=== PATIENT | female | born 1980 | race Hispanic/Latino ===

== ENCOUNTER 2018-05-06 11:32 | Emergency (ER) | payer BC ==
--- NOTE | 2018-05-06 12:06 | ER ---
Nurse's Notes [facility] Name: April Wei Age: 38 yrs Sex: Female : 1980 Arrival Date: 05/06/2018 Time: 11:36 Bed 23 Private MD: None, None Diagnosis: Bronchitis, not specified as acute or chronic Presentation: 05/06 11:40 Presenting complaint: Patient states: fever, cough congestion and headache that began ss yesterday evening. Transition of care: patient was not received from another setting of care. Onset of symptoms was May 05, 2018. Risk Assessment: Do you want to hurt yourself or someone else? Patient reports no desire to harm self or others. Initial Sepsis Screen: Does the patient meet any 2 criteria? No. Patient's initial sepsis screen is negative. Does the patient have a suspected source of infection? No. Patient's initial sepsis screen is negative. Care prior to arrival: None. 11:40 Method Of Arrival: Ambulatory ss 11:40 Acuity: BARB 4 ss Triage Assessment: 11:50 General: Appears in no apparent distress. iw 11:50 General: Behavior is calm, cooperative. 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 - Social history:: Smoking status: Patient/guardian denies using tobacco, Patient/guardian denies using alcohol, street drugs, The patient lives with family. - Ebola Screening: : Patient denies exposure to infectious person Patient denies travel to an Ebola-affected area in the 21 days before illness onset. - Family history:: not pertinent. Screenin:20 Abuse screen: Denies threats or abuse. Denies injuries from another. Nutritional iw screening: No deficits noted. Tuberculosis screening: No symptoms or risk factors identified. Fall Risk None identified. Assessment: 11:55 General: Appears in no apparent distress. comfortable, Behavior is calm, cooperative. iw General: Reports feeling ill for. General: Reports fever for 1-2 days. Pain: Denies pain. Neuro: Level of Consciousness is awake, alert, obeys commands, Moves all extremities. Cardiovascular: Patient's skin is warm and dry. Respiratory: Reports cough that is. GI: No signs and/or symptoms were reported involving the gastrointestinal system. Derm: Skin is intact, is healthy with good turgor. Musculoskeletal: Range of motion: intact in all extremities. Vital Signs: 11:41 BP 135 / 89; Pulse 71; Resp 15; Temp 98.4(TE); Pulse Ox 100% on R/A; Weight 82.55 kg; ss Height 5 ft. 3 in. (160.02 cm); Pain 6/10; 11:41 Body Mass Index 32.24 (82.55 kg, 160.02 cm) ED Course: 11:36 Patient arrived in ED. dl4 11:37 None, None is Private Physician. dl4 11:41 Triage completed. ss 11:41 Arm band placed on right wrist. ss 11:42 Gypsy Lowe, RN is Primary Nurse. iw 11:45 Jae Mckeon MD is Attending Physician. ma2 11:45 Patient has correct armband on for positive identification. iw 12:20 No provider procedures requiring assistance completed. Patient did not have IV access iw during this emergency room visit. Administered Medications: No medications were administered Outcome: 12:05 Discharge ordered by . ma2 12:20 Discharged to home ambulatory. iw 12:20 Condition: good 12:20 Discharge instructions given to patient, Instructed on discharge instructions, follow up and referral plans. medication usage, Demonstrated understanding of instructions, follow-up care, medications, Prescriptions given X 2. 12:21 Patient left the ED. iw Signatures: Gypsy Lowe RN RN Suzanna Garcia RN RN Jae Mckeon MD MD ma2 Luna, David dl4
--- NOTE | 2018-05-06 12:06 | EDPHYS ---
Physician Documentation [facility] Name: April Wei Age: 38 yrs Sex: Female : 1980 Arrival Date: 05/06/2018 Time: 11:36 Bed 23 Private MD: None, None ED Physician Jae Mckeon HPI: 05/06 12:03 This 38 yrs old Female presents to ER via Ambulatory with complaints of Fever, ma2 Cough. 12:03 The patient reports fever, not measured (subjective). Onset: The symptoms/episode ma2 began/occurred gradually, 2 day(s) ago. Associated signs and symptoms: Pertinent positives: cough, Pertinent negatives: arthralgias, chest pain, hemoptysis, nausea, sinus congestion. Severity of symptoms: At their worst the symptoms were moderate in the emergency department the symptoms are unchanged. The patient has experienced similar episodes in the past. 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 - Social history:: Smoking status: Patient/guardian denies using tobacco, Patient/guardian denies using alcohol, street drugs, The patient lives with family. - Ebola Screening: : Patient denies exposure to infectious person Patient denies travel to an Ebola-affected area in the 21 days before illness onset. - Family history:: not pertinent. ROS: 12:03 Constitutional: Negative for fever, chills, and weight loss, Cardiovascular: Negative ma2 for chest pain, palpitations, and edema, Abdomen/GI: Negative for abdominal pain, nausea, diarrhea, and constipation, MS/Extremity: Negative for injury and deformity, Neuro: Negative for headache, weakness, numbness, tingling, and seizure, Allergy/Immunology: Negative for hives, rash, and allergies. 12:03 Respiratory: Positive for cough, Negative for dyspnea on exertion, orthopnea, pleurisy, shortness of breath, sputum production. 12:03 All other systems are negative. Exam: 12:03 Constitutional: This is a well developed, well nourished patient who is awake, alert, ma2 and in no acute distress. Neck: Trachea midline, no thyromegaly or masses palpated, and no cervical lymphadenopathy. Supple, full range of motion without nuchal rigidity, or vertebral point tenderness. No Meningismus. Chest/axilla: Normal chest wall appearance and motion. Nontender with no deformity. No lesions are appreciated. Cardiovascular: Regular rate and rhythm with a normal S1 and S2. No gallops, murmurs, or rubs. Normal PMI, no JVD. No pulse deficits. Respiratory: Lungs have equal breath sounds bilaterally, clear to auscultation and percussion. No rales, rhonchi or wheezes noted. No increased work of breathing, no retractions or nasal flaring. Abdomen/GI: Soft, non-tender, with normal bowel sounds. No distension or tympany. No guarding or rebound. No evidence of tenderness throughout. MS/ Extremity: Pulses equal, no cyanosis. Neurovascular intact. Full, normal range of motion. Neuro: Awake and alert, GCS 15, oriented to person, place, time, and situation. Cranial nerves II-XII grossly intact. Motor strength 5/5 in all extremities. Sensory grossly intact. Cerebellar exam normal. Normal gait. Vital Signs: 11:41 BP 135 / 89; Pulse 71; Resp 15; Temp 98.4(TE); Pulse Ox 100% on R/A; Weight 82.55 kg; ss Height 5 ft. 3 in. (160.02 cm); Pain 6/10; 11:41 Body Mass Index 32.24 (82.55 kg, 160.02 cm) MDM: 11:45 Patient medically screened. ma2 12:03 Differential diagnosis: viral Infection, URI, bronchitis, gastroenteritis, patient ma2 rquest antibiotic. Data reviewed: vital signs, nurses notes. Counseling: I had a detailed discussion with the patient and/or guardian regarding: the historical points, exam findings, and any diagnostic results supporting the discharge/admit diagnosis, the presence of at least one elevated blood pressure reading (>120/80) during this emergency department visit, the need for outpatient follow up. Administered Medications: No medications were administered Disposition: 05/06/18 12:05 Discharged to Home. Impression: Bronchitis, not specified as acute or chronic. - Condition is Stable. - Discharge Instructions: Upper Respiratory Infection, Adult, Form - Excuse from Work, School, or Physical Activity. - Prescriptions for Augmentin 875- 125 mg Oral Tablet - take 1 tablet by ORAL route every 12 hours for 10 days; 20 tablet. Tylenol- Codeine #3 300-30 mg Oral Tablet - take 2 tablet by ORAL route every 6 hours As needed; 30 tablet. - Work release form, Medication Reconciliation Form, Thank You Letter, Antibiotic Education, Prescription Opioid Use form. - Follow up: Private Physician; When: Tomorrow; Reason: Continuance of care. Signatures: Gypsy Lowe RN RN Suzanna Garcia RN RN Jae Mckeon MD MD ma2 Corrections: (The following items were deleted from the chart) 12:21 12:05 05/06/2018 12:05 Discharged to Home. Impression: Bronchitis, not specified as iw acute or chronic. Condition is Stable. Forms are Medication Reconciliation Form, Thank You Letter, Antibiotic Education, Prescription Opioid Use. Follow up: Private Physician; When: Tomorrow; Reason: Continuance of care. ma2
== END 2018-05-06 12:21 | disposition home or self-care (01) ==
LOC: ER 11:32
DX: J40 Bronchitis, not specified as acute or chronic (principal)
CPT/HCPCS: 99282

== ENCOUNTER 2018-06-10 08:58 | Emergency (ER) | payer BC ==
--- OUTSIDE RECORDS SUMMARY | 2018-06-10 09:00 | XMS REPORT ---
:1980 [facility] Address [address] [place] [address] Care Team Providers Name Role Phone Unavailable Unavailable Unavailable Payers Payer Name Policy Type Policy Number Effective Date Expiration Date Problems This patient has no known problems. Allergies, Adverse Reactions, Alerts This patient has no known allergies or adverse reactions. Medications This patient has no known medications. Results Test Description Test Time Test Comments Text Results Atomic Results Result Comments - CT MAXIFAC W/O 2018-05-22 10:58:00 Name: MASON PANTOJA [facility] : 1980 Age/S: 38 / F [id number] Unit #: [id number] Loc: [place] [address] Phys: Wesley Villatoro III, MD Acct: [id number] Dis Date: Status: REG CL PHONE #: [phone] Exam Date: 05/22/2018 1005 FAX #: Reason: NASAL POLYPS, J33.9 EXAMS: CPT: [id number] CT MAXIFAC W/O CONTRAST 99418 Examination: Sinus CT without contrast Location code: S17 Comparison: None Technique: Thin section axial images were obtained through the sinuses followed by coronal and sagittal reformations. All CT scans are performed using radiation dose reduction technique. Technical factors are evaluated and adjusted to insure appropriate moderation of exposure. Automated dose management technology is applied to adjust the radiation dose to minimize exposure while achieving a diagnostic quality image. [facility] protocol was utilized. Discussion: Clinical history is remarkable for nasal polyps. Polypoid protrusions are present within the nasal cavity effacing the air passages adjacent to the middle turbinates completely, partial effacement of the air passages adjacent to the inferior turbinates, left more than right. This finding contributes to at least 70% opacification of left maxillary sinus, 30-40% opacification of the right maxillary sinus. The ostiomeatal complex bilaterally is effaced. Mild mucosal thickening is present in the floor of the right frontal sinus, the right frontal ethmoidal recess is occluded. The left-sided frontal ethmoidal recess is partially effaced. Mastoid air cells and middle ears are unremarkable. There is chronic mucoperiosteal thickening of the sphenoid sinus bilaterally. Impression: Findings suggest diffuse nasal polyposis, diffuse paranasal sinus disease is present as a result. There is no erosion into the orbits. at 1058 Reported and signed by: Brennen Downs M.D. PAGE 1 Signed Report (CONTINUED) Name: MASON PANTOJA [facility] : 1980 Age/S: 38 / F [id number] Unit #: [id number] Loc: [place] [address] Phys: Wesley Villatoro III, MD Acct: [id number] Dis Date: Status: REG CLI PHONE #: [phone] Exam Date: 05/22/2018 1005 FAX #: Reason: NASAL POLYPS, J33.9 EXAMS: CPT: [id number] CT MAXIFAC W/O CONTRAST 72656 <Continued> CC: Wesley Villatoro III, MD Technologist:Yumiko Mack, RT(R)(CT) CTDI: DLP: Trnscb Date/Time: 05/22/2018 (1054) [id number] Orig Print D/T: S: 05/22/2018 (3430) CTDI: DLP: PAGE 2 Signed Report
--- NOTE | 2018-06-10 10:03 | ER ---
Nurse's Notes [facility] Name: April Wei Age: 38 yrs Sex: Female : 1980 Arrival Date: 06/10/2018 Time: 09:00 Bed 11 Private MD: Diagnosis: Influenza due to identified novel influenza A virus Presentation: 06/10 09:07 Presenting complaint: Patient states: flu like symptoms for 2 days. Transition of care: patient was not received from another setting of care. Onset of symptoms was June 08, 2018. Risk Assessment: Do you want to hurt yourself or someone else? Patient reports no desire to harm self or others. Initial Sepsis Screen: Does the patient meet any 2 criteria? No. Patient's initial sepsis screen is negative. Does the patient have a suspected source of infection? No. Patient's initial sepsis screen is negative. Care prior to arrival: Medication(s) given: mucinex. 09:07 Method Of Arrival: Ambulatory 09:07 Acuity: BARB 4 Triage Assessment: 09:08 General: Appears in no apparent distress. comfortable, Behavior is calm, cooperative, ch appropriate for age. Pain: Complains of pain in face Pain currently is 6 out of 10 on a pain scale. Quality of pain is described as pressure. EENT: Reports nasal congestion nasal discharge. Neuro: No deficits noted. Respiratory: Reports cough that is. 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 - Social history:: Smoking status: Patient/guardian denies using tobacco, Patient/guardian denies using alcohol, street drugs. - Ebola Screening: : Patient negative for fever greater than or equal to 101.5 degrees Fahrenheit, and additional compatible Ebola Virus Disease symptoms Patient denies exposure to infectious person Patient denies travel to an Ebola-affected area in the 21 days before illness onset No symptoms or risks identified at this time. Screenin:39 Abuse screen: Denies threats or abuse. Denies injuries from another. Nutritional ss screening: No deficits noted. Tuberculosis screening: No symptoms or risk factors identified. Never had TB. Fall Risk None identified. Assessment: 09:39 General: Appears in no apparent distress. comfortable, Behavior is calm, cooperative, ss quiet, Reports fever for 1-2 days, feeling ill for 1-2 days. Pain: Complains of pain in general body aches Pain currently is 6 out of 10 on a pain scale. Quality of pain is described as aching, tender. Neuro: Level of Consciousness is awake, alert, obeys commands, Oriented to person, place, time, situation. Cardiovascular: Capillary refill < 3 seconds is brisk in bilateral fingers. Respiratory: Airway is patent Trachea midline Respiratory effort is even, unlabored, Respiratory pattern is regular, symmetrical. GI: Patient currently denies diarrhea, nausea, vomiting. : No signs and/or symptoms were reported regarding the genitourinary system. EENT: Nares are clear Oral mucosa is moist. Throat is clear. Derm: Skin is intact, is healthy with good turgor, Skin is dry, Skin is pink, warm \T\ dry. normal. Musculoskeletal: Circulation, motion, and sensation intact. Capillary refill < 3 seconds, is brisk, in bilateral fingers. Range of motion: intact in all extremities, Swelling absent. 09:39 EENT: Reports nasal congestion. Vital Signs: 09:08 BP 139 / 89; Pulse 95; Resp 16; Temp 99.9(O); Pulse Ox 100% on R/A; Weight 83.46 kg; ch Height 5 ft. 3 in. (160.02 cm); Pain 6/10; 09:08 Body Mass Index 32.59 (83.46 kg, 160.02 cm) ED Course: 09:00 Patient arrived in ED. as 09:01 El[facility]ke[facility]C [facility] kb 09:01 Justo Callaway MD is Attending Physician. kb 09:08 Triage completed. 09:08 Arm band placed on left wrist. Patient placed in an exam room, on a stretcher. 09:13 Yolanda Downs, TODD is Primary Nurse. 09:33 Strep Sent. 09:33 Flu Sent. 09:39 Patient has correct armband on for positive identification. Bed in low position. Call ss light in reach. 10:00 No provider procedures requiring assistance completed. IV discontinued, intact, ch bleeding controlled, No redness/swelling at site. Pressure dressing applied. Administered Medications: No medications were administered Outcome: 10:02 Discharge ordered by . sergei 10:10 Discharged to home ambulatory, with family. 10:10 Condition: improved 10:10 Discharge instructions given to patient, family, Instructed on discharge instructions, follow up and referral plans. medication usage, Demonstrated understanding of instructions, follow-up care, medications. 10:12 Patient left the ED. Signatures: Elodia Mckeon, SANDHYA-C SANDHYA-Yolanda Desir, RN RN Adia Rick Shelby, RN RN ss Corrections: (The following items were deleted from the chart) 09:42 09:39 Pain: Complains of pain in face Pain currently is 6 out of 10 on a pain scale. Quality of pain is described as aching, tender, ss 09:43 09:42 EENT: Reports nasal congestion ss ss
--- NOTE | 2018-06-10 10:03 | EDPHYS ---
Physician Documentation [facility] Name: April Wei Age: 38 yrs Sex: Female : 1980 Arrival Date: 06/10/2018 Time: 09:00 Bed 11 Private MD: ED Physician Justo Callaway HPI: 06/10 09:55 This 38 yrs old Female presents to ER via Ambulatory with complaints of Flu kb Symptoms. 09:55 The patient or guardian reports cough, that is intermittent, described as mild, with no kb sputum, flu symptoms, arthralgias, low-grade fever, myalgias, no appetite. Onset: The symptoms/episode began/occurred 2 day(s) ago. Severity of symptoms: At their worst the symptoms were mild, moderate, in the emergency department the symptoms are unchanged. Modifying factors: The symptoms are alleviated by nothing, the symptoms are aggravated by nothing. Associated signs and symptoms: Pertinent positives: fever, rhinorrhea, sore throat, Pertinent negatives: chest pain, diarrhea, ear ache, nausea, vomiting. The patient has not experienced similar symptoms in the past. The patient has not recently seen a physician. 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 - Social history:: Smoking status: Patient/guardian denies using tobacco, Patient/guardian denies using alcohol, street drugs. - Ebola Screening: : Patient negative for fever greater than or equal to 101.5 degrees Fahrenheit, and additional compatible Ebola Virus Disease symptoms Patient denies exposure to infectious person Patient denies travel to an Ebola-affected area in the 21 days before illness onset No symptoms or risks identified at this time. ROS: 09:54 Neck: Negative for injury, pain, and swelling, Cardiovascular: Negative for chest pain, kb palpitations, and edema, Abdomen/GI: Negative for abdominal pain, nausea, vomiting, diarrhea, and constipation, Back: Negative for injury and pain, : Negative for injury, bleeding, discharge, and swelling, MS/Extremity: Negative for injury and deformity, Skin: Negative for injury, rash, and discoloration, Neuro: Negative for headache, weakness, numbness, tingling, and seizure. 09:54 Constitutional: Positive for body aches, chills, fatigue, fever, malaise, Negative for poor PO intake, weight loss. 09:54 ENT: Positive for rhinorrhea, sinus congestion, sore throat. 09:54 Respiratory: Positive for cough, Negative for dyspnea on exertion, hemoptysis, orthopnea, pleurisy, shortness of breath, sputum production, wheezing. Exam: 09:55 Constitutional: This is a well developed, well nourished patient who is awake, alert, kb and in no acute distress. Head/Face: Normocephalic, atraumatic. ENT: Nares patent. No nasal discharge, no septal abnormalities noted. Tympanic membranes are normal and external auditory canals are clear. Oropharynx with no redness, swelling, or masses, exudates, or evidence of obstruction, uvula midline. Mucous membranes moist. Neck: Trachea midline, no thyromegaly or masses palpated, and no cervical lymphadenopathy. Supple, full range of motion without nuchal rigidity, or vertebral point tenderness. No Meningismus. Chest/axilla: Normal chest wall appearance and motion. Nontender with no deformity. No lesions are appreciated. Cardiovascular: Regular rate and rhythm with a normal S1 and S2. No gallops, murmurs, or rubs. Normal PMI, no JVD. No pulse deficits. Respiratory: Lungs have equal breath sounds bilaterally, clear to auscultation and percussion. No rales, rhonchi or wheezes noted. No increased work of breathing, no retractions or nasal flaring. Abdomen/GI: Soft, non-tender, with normal bowel sounds. No distension or tympany. No guarding or rebound. No evidence of tenderness throughout. Skin: Warm, dry with normal turgor. Normal color with no rashes, no lesions, and no evidence of cellulitis. MS/ Extremity: Pulses equal, no cyanosis. Neurovascular intact. Full, normal range of motion. Neuro: Awake and alert, GCS 15, oriented to person, place, time, and situation. Cranial nerves II-XII grossly intact. Motor strength 5/5 in all extremities. Sensory grossly intact. Cerebellar exam normal. Normal gait. Vital Signs: 09:08 BP 139 / 89; Pulse 95; Resp 16; Temp 99.9(O); Pulse Ox 100% on R/A; Weight 83.46 kg; ch Height 5 ft. 3 in. (160.02 cm); Pain 6/10; 09:08 Body Mass Index 32.59 (83.46 kg, 160.02 cm) MDM: 09:20 Patient medically screened. kb 09:54 Data reviewed: vital signs, nurses notes. Data interpreted: Pulse oximetry: on room air kb is 100 %. Interpretation: normal. Counseling: I had a detailed discussion with the patient and/or guardian regarding: the historical points, exam findings, and any diagnostic results supporting the discharge/admit diagnosis, lab results, the need for outpatient follow up, a family practitioner, to return to the emergency department if symptoms worsen or persist or if there are any questions or concerns that arise at home. 06/10 09:24 Order name: Flu; Complete Time: 09:54 kb 06/10 09:24 Order name: Strep; Complete Time: 09:56 kb 06/10 09:55 Order name: Throat Culture EDMS Administered Medications: No medications were administered Disposition: 18:00 Co-signature as Attending Physician, Justo Callaway MD. rn Disposition: 06/10/18 10:02 Discharged to Home. Impression: Influenza due to identified novel influenza A virus. - Condition is Stable. - Discharge Instructions: Influenza, Adult, [id number]. - Prescriptions for Tamiflu 75 mg Oral Capsule - take 1 capsule by ORAL route every 12 hours for 5 days; 10 capsule. - Work release form, Medication Reconciliation Form, Thank You Letter, Antibiotic Education, Prescription Opioid Use form. - Follow up: Emergency Department; When: As needed; Reason: Worsening of condition. Follow up: Private Physician; When: 2 - 3 days; Reason: Recheck today's complaints, Continuance of care, Re-evaluation by your physician. Signatures: Dispatcher [employer] EDMS Elodia Mckeon FNP-C FNP-Yolanda Desir RN RN Justo Chavez MD MD attorney lawyer: (The following items were deleted from the chart) 10:12 10:02 06/10/2018 10:02 Discharged to Home. Impression: Influenza due to identified novel influenza A virus. Condition is Stable. Discharge Instructions: Influenza, Adult, [id number]. Prescriptions for Tamiflu 75 mg Oral Capsule - take 1 capsule by ORAL route every 12 hours for 5 days; 10 capsule. and Forms are Work release form, Medication Reconciliation Form, Thank You Letter, Antibiotic Education, Prescription Opioid Use. Follow up: Emergency Department; When: As needed; Reason: Worsening of condition. Follow up: Private Physician; When: 2 - 3 days; Reason: Recheck today's complaints, Continuance of care, Re-evaluation by your physician. kb
== END 2018-06-10 10:12 | disposition home or self-care (01) ==
LOC: ER 08:58
DX: J11.1 Influenza due to unidentified influenza virus with other respiratory manifestations (principal)
CPT/HCPCS: 87070; 87081; 87804; 99283

== ENCOUNTER 2018-06-11 17:55 | Emergency (ER) | payer BC ==
--- OUTSIDE RECORDS SUMMARY | 2018-06-11 17:57 | XMS REPORT ---
:1980 [facility] Address 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 [place] protocol was utilized. 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
[2018-06-11] MEDS ORDERED: IBUPROFEN 400 MG TAB ONE ×2 (18:15→18:17)
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
--- NOTE | 2018-06-11 19:31 | RAD REPORT ---
EXAM DESCRIPTION: Marjan Single View06/11/2018 6:50 pm CLINICAL HISTORY: Chest pain COMPARISON: none FINDINGS: The lungs appear clear of acute infiltrate. The heart is normal size IMPRESSION: No acute abnormalities displayed
[2018-06-11] MEDS ORDERED: HYDROCODONE/APAP 5/325 MG TAB ONE (20:12)
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
== END 2018-06-11 20:41 | disposition home or self-care (01) ==
LOC: ER 17:55
DX: S09.90XA Unspecified injury of head, initial encounter (principal); S13.4XXA Sprain of ligaments of cervical spine, initial encounter; V49.40XA Driver injured in collision with unspecified motor vehicles in traffic accident, initial encounter
CPT/HCPCS: 70450; 71045; 72125; 99284

== ENCOUNTER 2018-09-02 13:51 | Emergency (ER) | payer BC ==
--- OUTSIDE RECORDS SUMMARY | 2018-09-02 13:53 | XMS REPORT ---
:1980 [facility] Address 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 [place] protocol was utilized. 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
[2018-09-02] MEDS ORDERED: HYDROCODONE/APAP 5/325 MG TAB ONE (14:27)
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
--- NOTE | 2018-09-02 15:09 | ER ---
Nurse's Notes [facility] Name: April Wei Age: 38 yrs Sex: Female : 1980 Arrival Date: 09/02/2018 Time: 13:53 Bed 5 Private MD: Akin Tabor M Diagnosis: Nondisplaced fracture of proximal phalanx of right lesser toe(s)-5th right toe Presentation: 09/02 13:59 Presenting complaint: Right foot pain after mechanical fall from standing last night. hb Denies other injuries. Transition of care: patient was not received from another setting of care. Onset of symptoms was September 01, 2018. Risk Assessment: Do you want to hurt yourself or someone else? Patient reports no desire to harm self or others. Initial Sepsis Screen: Does the patient meet any 2 criteria? No. Patient's initial sepsis screen is negative. Does the patient have a suspected source of infection? No. Patient's initial sepsis screen is negative. Care prior to arrival: None. 13:59 Method Of Arrival: Wheelchair 13:59 Acuity: BARB 4 hb Triage Assessment: 14:17 Injury Description: "injury from fall". 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 - Social history:: Smoking status: Patient/guardian denies using tobacco. - Ebola Screening: : No symptoms or risks identified at this time. Screenin:14 Abuse screen: Denies threats or abuse. Denies injuries from another. Nutritional ph screening: No deficits noted. Tuberculosis screening: Never had TB. Fall Risk None identified. 14:17 Abuse screen: Denies threats or abuse. Nutritional screening: No deficits noted. tw2 Tuberculosis screening: No symptoms or risk factors identified. Fall Risk None identified. Assessment: 14:14 General: Appears uncomfortable, Behavior is calm, cooperative. Pain: Complains of pain ph in R foot Pain currently is 8 out of 10 on a pain scale. Pain began last night Is continuous. Neuro: Level of Consciousness is awake, alert, obeys commands, Oriented to person, place, time, situation. Cardiovascular: Capillary refill < 3 seconds is brisk in bilateral fingers. Cardiovascular: Pulses are palpable in right posterior tibial artery and left posterior tibial artery. Respiratory: Airway is patent Respiratory effort is even, unlabored, Respiratory pattern is regular, symmetrical. GI: No signs and/or symptoms were reported involving the gastrointestinal system. : No signs and/or symptoms were reported regarding the genitourinary system. EENT: Nares are clear. Derm: Skin is intact, is healthy with good turgor, Skin is Skin is pink, warm \\T\\ dry. normal. Musculoskeletal: Circulation, motion, and sensation intact. Range of motion: intact in all extremities, Swelling absent. 15:39 Reassessment: Patient appears in no apparent distress at this time. Patient and/or ph family updated on plan of care and expected duration. Pain level reassessed. Patient is alert, oriented x 3, equal unlabored respirations, skin warm/dry/pink. Post op shoe placed to R foot and pt d/c home with pain medication and crutches. Vital Signs: 13:59 BP 118 / 68; Pulse 75; Resp 16; Temp 98.7; Pulse Ox 100% on R/A; Weight 86.18 kg; hb Height 5 ft. 3 in. (160.02 cm); Pain 9/10; 13:59 Body Mass Index 33.66 (86.18 kg, 160.02 cm) hb ED Course: 13:53 Patient arrived in ED. rg4 13:53 Akin Tabor MD is Private Physician. rg4 13:59 Triage completed. hb 14:01 Edgardo Lauren NP is PHCP. pm1 14:01 Arm band placed on. hb 14:01 Call light in reach. Pulse ox on. NIBP on. tw2 14:02 Jae Mckeon MD is Attending Physician. pm1 14:08 Virginia Chandler, TODD is Primary Nurse. ph 14:14 Patient has correct armband on for positive identification. Bed in low position. Call ph light in reach. 14:41 Foot Right 3 View XRAY In Process Unspecified. EDMS 15:40 No provider procedures requiring assistance completed. Patient did not have IV access ph during this emergency room visit. Crutch training done. Ortho shoe applied to right foot. Administered Medications: 14:14 Drug: [place] 5 mg-325 mg 1 tabs Route: PO; ph 15:39 Follow up: Response: No adverse reaction; Pain is decreased ph Outcome: 15:09 Discharge ordered by . pm1 15:40 Discharged to home ambulatory, with crutches. ph 15:40 Condition: good 15:40 Discharge instructions given to patient, Instructed on discharge instructions, follow up and referral plans. medication usage, Demonstrated understanding of instructions, follow-up care, medications, Prescriptions given X 1. 15:41 Patient left the ED. ph Signatures: Dispatcher [employer] EDMS Virginia Chandler RN RN ph Edgardo Lauren, ALEX SPEECH COMMUNICATION PROFESSOR pm1 Salma Wharton RN RN Soila Souza RN RN tw2 Alejandra Dennis rg4
--- NOTE | 2018-09-02 15:09 | EDPHYS ---
Physician Documentation [facility] Name: April Wei Age: 38 yrs Sex: Female : 1980 Arrival Date: 09/02/2018 Time: 13:53 Bed 5 Private MD: Akin Tabor M ED Physician Jae Mckeon HPI: 09/02 14:05 This 38 yrs old Female presents to ER via Wheelchair with complaints of Right pm1 Foot Injury. 14:05 The patient presents with pain, that is acute. The complaints affect the right foot. pm1 Context: The problem was sustained outdoors, resulted from stepped into hole, the patient is not able to bear weight, the patient is able to ambulate, with moderate difficulty, Problem is a result from a previous injury: No. Onset: The symptoms/episode began/occurred last night. Modifying factors: The symptoms are alleviated by nothing. the symptoms are aggravated by weight bearing. Associated signs and symptoms: Pertinent positives: swelling, Pertinent negatives calf tenderness, fever, numbness, tingling. Severity of symptoms: in the emergency department the symptoms are unchanged. The patient has not experienced similar symptoms in the past. Patient was walking from her mother's house to her house and stepped in a hole in the yard. Resulted in right foot pain and bruising. No head injury, headache, LOC, neck pain. 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 - Social history:: Smoking status: Patient/guardian denies using tobacco. - Ebola Screening: : No symptoms or risks identified at this time. ROS: 14:05 Constitutional: Negative for fever, chills, and weight loss, Eyes: Negative for injury, pm1 pain, redness, and discharge, ENT: Negative for injury, pain, and discharge, Neck: Negative for injury, pain, and swelling, Cardiovascular: Negative for chest pain, palpitations, and edema, Respiratory: Negative for shortness of breath, cough, wheezing, and pleuritic chest pain, Abdomen/GI: Negative for abdominal pain, nausea, vomiting, diarrhea, and constipation, Back: Negative for injury and pain. 14:05 Skin: Negative for injury, rash, and discoloration, Neuro: Negative for headache, weakness, numbness, tingling, and seizure. 14:05 MS/extremity: Positive for pain, swelling, of the dorsum of right foot, lateral distal portion, Negative for deformity. Exam: 14:05 Constitutional: This is a well developed, well nourished patient who is awake, alert, pm1 and in no acute distress. Head/Face: Normocephalic, atraumatic. Eyes: Pupils equal round and reactive to light, extra-ocular motions intact. Lids and lashes normal. Conjunctiva and sclera are non-icteric and not injected. Cornea within normal limits. Periorbital areas with no swelling, redness, or edema. ENT: Nares patent. No nasal discharge, no septal abnormalities noted. Tympanic membranes are normal and external auditory canals are clear. Oropharynx with no redness, swelling, or masses, exudates, or evidence of obstruction, uvula midline. Mucous membranes moist. Neck: Trachea midline, no thyromegaly or masses palpated, and no cervical lymphadenopathy. Supple, full range of motion without nuchal rigidity, or vertebral point tenderness. No Meningismus. Chest/axilla: Normal chest wall appearance and motion. Nontender with no deformity. No lesions are appreciated. Cardiovascular: Regular rate and rhythm with a normal S1 and S2. No gallops, murmurs, or rubs. Normal PMI, no JVD. No pulse deficits. Respiratory: Lungs have equal breath sounds bilaterally, clear to auscultation and percussion. No rales, rhonchi or wheezes noted. No increased work of breathing, no retractions or nasal flaring. Abdomen/GI: Soft, non-tender, with normal bowel sounds. No distension or tympany. No guarding or rebound. No evidence of tenderness throughout. Back: No spinal tenderness. No costovertebral tenderness. Full range of motion. Skin: Warm, dry with normal turgor. Normal color with no rashes, no lesions, and no evidence of cellulitis. 14:05 Musculoskeletal/extremity: Extremities: grossly normal except: noted in the tenderness to distal aspect of right 3rd to 5th metatarsals: Circulation is intact in all extremities. the right foot Sensation intact. 14:05 Neuro: Orientation: is normal, Motor: is normal, moves all fours, Sensation: is normal, no obvious gross deficits. Vital Signs: 13:59 BP 118 / 68; Pulse 75; Resp 16; Temp 98.7; Pulse Ox 100% on R/A; Weight 86.18 kg; hb Height 5 ft. 3 in. (160.02 cm); Pain 9/10; 13:59 Body Mass Index 33.66 (86.18 kg, 160.02 cm) hb MDM: 14:02 Patient medically screened. pm1 15:07 Data reviewed: vital signs. Data interpreted: Pulse oximetry: on room air is 100 %. pm1 Interpretation: normal. Counseling: I had a detailed discussion with the patient and/or guardian regarding: the historical points, exam findings, and any diagnostic results supporting the discharge/admit diagnosis, radiology results, the need for outpatient follow up, a closing manager, to return to the emergency department if symptoms worsen or persist or if there are any questions or concerns that arise at home. 09/02 14:05 Order name: Foot Right 3 View XRAY; Complete Time: 15:01 pm1 09/02 15:01 Order name: Post-op shoe; Complete Time: 15:39 pm1 09/02 15:01 Order name: Crutches; Complete Time: 15:39 pm1 Administered Medications: 14:14 Drug: Buhl 5 mg-325 mg 1 tabs Route: PO; ph 15:39 Follow up: Response: No adverse reaction; Pain is decreased ph Disposition: 21:17 Co-signature as Attending Physician, Jae Mckeon MD. ma2 Disposition: 09/02/18 15:09 Discharged to Home. Impression: Nondisplaced fracture of proximal phalanx of right lesser toe(s) - 5th right toe. - Condition is Stable. - Discharge Instructions: Crutch Use, Toe Fracture. - Prescriptions for Tylenol- Codeine #3 300-30 mg Oral Tablet - take 2 tablets by ORAL route every 6 hours As needed; 20 tablet. - Work release form, Medication Reconciliation Form, Thank You Letter, Antibiotic Education, Prescription Opioid Use form. - Follow up: Emergency Department; When: As needed; Reason: Worsening of condition. Follow up: Private Physician; When: 2 - 3 days; Reason: Recheck today's complaints, Continuance of care, Re-evaluation by your physician. - Problem is new. - Symptoms have improved. Signatures: Dispatcher [employer] EDVirginia Schafer, RN RN Edgardo Lauren, DRIFTMAN DRIFTMAN pm1 Salma Wharton RN RN Jae Mckeon MD MD ma2 Corrections: (The following items were deleted from the chart) 15:41 15:09 09/02/2018 15:09 Discharged to Home. Impression: Nondisplaced fracture of ph proximal phalanx of right lesser toe(s) - 5th right toe. Condition is Stable. Forms are Medication Reconciliation Form, Thank You Letter, Antibiotic Education, Prescription Opioid Use. Follow up: Emergency Department; When: As needed; Reason: Worsening of condition. Follow up: Private Physician; When: 2 - 3 days; Reason: Recheck today's complaints, Continuance of care, Re-evaluation by your physician. Problem is new. Symptoms have improved. pm1
== END 2018-09-02 15:41 | disposition home or self-care (01) ==
LOC: ER 13:51
DX: S92.514A Nondisplaced fracture of proximal phalanx of right lesser toe(s), initial encounter for closed fracture (principal); X58.XXXA Exposure to other specified factors, initial encounter
CPT/HCPCS: 99284

== ENCOUNTER 2020-09-20 09:59 | Emergency (ER) | payer BC ==
[2020-09-20 11:40] LABS: Urine Blood 1+ (Negative); Urine Glucose Negative (Negative); Urine Protein Negative (Negative); Urine Specific Gravity 1.025 (1.005-1.030); Urine pH 8.5 (5.0-7.0)
[2020-09-20 11:44] LABS: Absolute Lymphocytes (CBC) 1.2 K/uL (0.7-4.9); Basophils % 0.7 % (0-1.3); Hematocrit 31.8 % (36.0-45.0); Lymphocytes % 11.5 % (15.3-44.8); MPV 7.5 fL (7.6-11.3); RBC Red Blood Cell Count 3.82 M/uL (3.86-4.86)
[2020-09-20 12:04] LABS: ALT/SGPT 18 U/L (12-78); AST/SGOT 10 U/L (15-37); Albumin 3.5 g/dL (3.4-5.0); Alkaline Phosphatase 70 U/L (45-117); BUN Blood Urea Nitrogen 11 mg/dL (7-18); Bicarbonate 25 mmol/L (21-32); Bilirubin Direct < 0.1 mg/dL (0-0.2); Bilirubin Total 0.1 mg/dL (0.2-1.0); Glucose Level 115 mg/dL (74-106); Lipase 109 U/L (73-393); Potassium 4.2 mmol/L (3.5-5.1); Protein, Total 7.9 g/dL (6.4-8.2); Sodium Level 138 mmol/L (136-145)
[2020-09-20 12:26] LABS: Blood Morphology Comment NOTED (NOT SEEN); Platelet Estimate INCR; White Blood Cell Scan OK (OK)
[2020-09-20 12:27] LABS: Polychromasia SLIGHT
--- NOTE | 2020-09-20 12:36 | RAD REPORT ---
EXAM DESCRIPTION: CT - Abdomen Pelvis W Contrast - 09/20/2020 12:16 pm CLINICAL HISTORY: right sided abdominal pain COMPARISON: Abdomen Pelvis W Contrast dated 12/12/2016 TECHNIQUE: Biphasic, helical CT imaging of the abdomen and pelvis was performed following 100 ml non -ionic IV contrast. No oral contrast administered. All CT scans are performed using dose optimization technique as appropriate and may include automated exposure control or mA/KV adjustment according to patient size. FINDINGS: No suspicious findings in the lung bases. The liver, spleen, and pancreas show no suspicious findings. At least 1 moderate-sized gallstone is i dentifiable in the lumen of the gallbladder. No gallbladder wall thickening or edema suspected. No bi liary tree dilatation. Symmetric renal function is seen with no hydronephrosis or suspicious renal mass. No pyelonephritis o r acute parenchymal process. No bladder abnormalities. No adrenal abnormalities. Uterus and ovaries s how no suspicious findings. No dilated bowel loops or bowel wall thickening. Appendix is normal. Gastric bypass surgical changes are noted. No free air, free fluid or inflammatory stranding. No hernia, mass or bulky lymphadenopat hy. No suspicious bony findings. IMPRESSION: Cholelithiasis without evidence for cholecystitis or biliary tree abnormality. No acute GI, or SENIOR ENGINEERING TECHNICIAN findings otherwise noted.
--- NOTE | 2020-09-20 13:39 | RAD REPORT ---
EXAM DESCRIPTION: US - Transvaginal Study Probe - 09/20/2020 1:32 pm CLINICAL HISTORY: right sided pelvic pain, r/o torsion COMPARISON: TRANSVAGINAL STUDY PROBE dated 10/25/2014; Abdomen Pelvis W Contrast dated 09/20/2020 TECHNIQUE: Endovaginal and limited transabdominal sonography performed. FINDINGS: Uterus is normal in size measuring 8 x 4 x 5.5 cm. No myometrial mass. Endometrial stripe is less than 3 mm with no mass or polyp identifiable. Endometrium - myometrium interface is preserved . No blood or fluid in the cul de sac. Both ovaries are identifiable with the left ovary better visualized on the transabdominal approach. B lood flow is seen within each ovary. No dominant solid or cystic ovarian or adnexal finding. No new f inding seen when correlated with the September [address] CT study. IMPRESSION: Unremarkable pelvic ultrasound.
--- NOTE | 2020-09-20 14:11 | ER ---
Nurse's Notes [facility] Name: April Wei Age: 40 yrs Sex: Female : 1980 Arrival Date: 09/20/2020 Time: 10:03 Bed 17 [facility] MD: Diagnosis: Abdominal and pelvic pain Presentation: 09/20 10:09 Chief complaint: Patient states: "I am having lower right sided stomach pain.". jd3 Coronavirus screen: At this time, the client does not indicate any symptoms associated with coronavirus-19. Ebola Screen: Patient negative for fever greater than or equal to 101.5 degrees Fahrenheit, and additional compatible Ebola Virus Disease symptoms. Initial Sepsis Screen: Does the patient meet any 2 criteria? No. Patient's initial sepsis screen is negative. Does the patient have a suspected source of infection? No. Patient's initial sepsis screen is negative. Risk Assessment: Do you want to hurt yourself or someone else? Patient reports no desire to harm self or others. Onset of symptoms was September 19, 2020. 10:09 Method Of Arrival: Ambulatory jd3 10:09 Acuity: BARB 3 jd3 10:12 Note Ibuprofen taken 1 hour prior to arrival. 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 - Social history:: Smoking status: Patient denies any tobacco usage or history of. Screenin:51 Abuse screen: Denies threats or abuse. Nutritional screening: No deficits noted. vg1 Tuberculosis screening: No symptoms or risk factors identified. Fall Risk No fall in past 12 months (0 pts). No secondary diagnosis (0 pts). IV access (20 points). Ambulatory Aid- None/Bed Rest/Nurse Assist (0 pts). Gait- Normal/Bed Rest/Wheelchair (0 pts) Mental Status- Oriented to own ability (0 pts). Total Joy Fall Scale indicates No Risk (0-24 pts). Assessment: 11:50 General: Appears in no apparent distress. comfortable, Behavior is calm, cooperative. vg1 Pain: Complains of pain in right lower quadrant Pain currently is 6 out of 10 on a pain scale. Pain began 1 day ago. Neuro: Level of Consciousness is awake, alert, obeys commands, Oriented to person, place, time, situation. Cardiovascular: Patient's skin is warm and dry. Respiratory: Airway is patent Respiratory effort is even, unlabored. GI: Patient currently denies diarrhea, nausea, vomiting. : Denies burning with urination, inability to void, urinary frequency. EENT: No signs and/or symptoms were reported regarding the EENT system. Derm: Skin is intact, is healthy with good turgor. Musculoskeletal: Circulation, motion, and sensation intact. 13:43 Reassessment: Patient appears in no apparent distress at this time. No changes from vg1 previously documented assessment. Patient and/or family updated on plan of care and expected duration. Pain level reassessed. Patient is alert, oriented x 3, equal unlabored respirations, skin warm/dry/pink. pt requesting pain medication RLQ pain, provider notified. 14:30 Reassessment: Patient appears in no apparent distress at this time. Patient and/or vg1 family updated on plan of care and expected duration. Pain level reassessed. Patient is alert, oriented x 3, equal unlabored respirations, skin warm/dry/pink. Vital Signs: 10:11 BP 115 / 65; Pulse 89; Resp 18 S; Temp 97.3(TE); Pulse Ox 98% on R/A; Weight 90.72 kg jd3 (R); Height 5 ft. 3 in. (160.02 cm) (R); Pain 6/10; 11:51 BP 108 / 54; Pulse 62; Resp 16; Pulse Ox 100% on R/A; vg1 13:44 BP 125 / 55; Pulse 64; Resp 16; Pulse Ox 100% ; vg1 10:11 Body Mass Index 35.43 (90.72 kg, 160.02 cm) jd3 ED Course: 10:03 Patient arrived in ED. rg4 10:10 Triage completed. jd3 11:23 Akin Edmond PA is PHCP. [facility] [place] 11:23 Frankie Mejía MD is Attending Physician. [facility] 11:45 Manuela Dennis, TODD is Primary Nurse. vg1 11:49 Inserted saline lock: 18 gauge in right antecubital area, using aseptic technique. vg1 ,using aseptic technique. completed by TODD Mes[place]. 11:51 Patient has correct armband on for positive identification. Bed in low position. Call vg1 light in reach. Side rails up X 1. 11:51 Arm band placed on. vg1 12:15 CT Abd/Pelvis - IV Contrast Only In Process Unspecified. EDMS 12:55 Transvaginal Study Probe In Process Unspecified. EDMS 14:11 Tom King MD is Referral Physician. [facility] [place] 14:30 No provider procedures requiring assistance completed. IV discontinued, intact, vg1 bleeding controlled, No redness/swelling at site. Pressure dressing applied. Administered Medications: No medications were administered Outcome: 14:11 Discharge ordered by . jm 14:30 Discharged to home ambulatory. vg1 14:30 Condition: stable 14:30 Discharge instructions given to patient, Instructed on discharge instructions, follow up and referral plans. medication usage, Demonstrated understanding of instructions, follow-up care, medications, Prescriptions given X 1. 14:31 Patient left the ED. vg1 Signatures: Dispatcher [employer] EDMS Akin Edmond PA PA jmm Garcia, Rubi rg4 Mike Grissom RN RN Manuela Rai RN RN vg1
--- NOTE | 2020-09-20 14:11 | EDPHYS ---
Physician Documentation [facility] Name: April Wei Age: 40 yrs Sex: Female : 1980 Arrival Date: 09/20/2020 Time: 10:03 Bed 17 Private MD: ED Physician Frankie Mejía HPI: 09/20 11:41 This 40 yrs old Female presents to ER via Ambulatory with complaints of Flank jmm Pain. 11:41 The patient presents with abdominal pain. Onset: The symptoms/episode began/occurred jmm gradually, 1 day(s) ago. The symptoms do not radiate. Associated signs and symptoms: Pertinent negatives: vomiting. The symptoms are described as achy. Modifying factors: The symptoms are alleviated by nothing, the symptoms are aggravated by nothing. This is a 40 year old female with no chronic medical conditions that presents to the ED with complaints of right lower abdominal/pelvic pain beginning yesterday, intensifying today. Denies fever, vomiting, diarrhea. . 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 - Social history:: Smoking status: Patient denies any tobacco usage or history of. ROS: 11:41 Constitutional: Negative for fever, chills, and weight loss, Cardiovascular: Negative jmm for chest pain, palpitations, and edema, Respiratory: Negative for shortness of breath, cough, wheezing, and pleuritic chest pain. 11:41 Abdomen/GI: Positive for abdominal pain. 11:41 All other systems are negative. Exam: 11:41 Constitutional: This is a well developed, well nourished patient who is awake, alert, jmm and in no acute distress. Cardiovascular: Regular rate and rhythm. No edema appreciated Respiratory: Normal respirations, no respiratory distress appreciated 11:41 Skin: General appearance color normal MS/ Extremity: Moves all extremities, no obvious deformities appreciated, no edema noted to the lower extremities Neuro: Awake and alert, normal gait Psych: Behavior is normal, Mood is normal, Patient is cooperative and pleasant 11:41 Abdomen/GI: Inspection: abdomen appears normal, Bowel sounds: normal, Palpation: soft, mild abdominal tenderness, in the right lower quadrant. Vital Signs: 10:11 BP 115 / 65; Pulse 89; Resp 18 S; Temp 97.3(TE); Pulse Ox 98% on R/A; Weight 90.72 kg jd3 (R); Height 5 ft. 3 in. (160.02 cm) (R); Pain 6/10; 11:51 BP 108 / 54; Pulse 62; Resp 16; Pulse Ox 100% on R/A; vg1 13:44 BP 125 / 55; Pulse 64; Resp 16; Pulse Ox 100% ; vg1 10:11 Body Mass Index 35.43 (90.72 kg, 160.02 cm) jd3 MDM: 11:26 Patient medically screened. liza 14:09 Data reviewed: vital signs, nurses notes. Counseling: I had a detailed discussion with oleg the patient and/or guardian regarding: the historical points, exam findings, and any diagnostic results supporting the discharge/admit diagnosis, lab results, radiology results, the need for outpatient follow up, to return to the emergency department if symptoms worsen or persist or if there are any questions or concerns that arise at home. ED course: Patient is advised to follow up with GI and ANESTHESIOLOGIST PHYSICIAN for further evaluation. patient is otherwise given strict return precautions. patient understood and agrees with the plan of care. . 09/20 11:24 Order name: Basic Metabolic Panel; Complete Time: 12:09 [facility] 09/20 11:24 Order name: CBC with Diff; Complete Time: 12:33 [facility] 09/20 11:24 Order name: Hepatic Function; Complete Time: 12:09 [facility] 09/20 11:24 Order name: Lipase; Complete Time: 12:09 [facility] 09/20 11:40 Order name: Urine Dipstick-Ancillary [facility] 09/20 11:40 Order name: Urine Dipstick-Ancillary; Complete Time: 11:53 [facility] 09/20 11:24 Order name: IV Saline Lock; Complete Time: 11:29 [facility] 09/20 11:24 Order name: Labs collected and sent; Complete Time: 11:29 [facility] 09/20 11:24 Order name: Urine Test (obtain specimen); Complete Time: 11:44 [facility] 09/20 11:24 Order name: Urine Dipstick-Ancillary (obtain specimen); Complete Time: 11:44 [facility] 09/20 11:48 Order name: CBC Smear Scan; Complete Time: 12:33 [facility] 09/20 11:52 Order name: CT Abd/Pelvis - IV Contrast Only; Complete Time: 12:38 [facility] 09/20 12:42 Order name: Transvaginal Study Probe; Complete Time: 13:42 [facility] Administered Medications: No medications were administered Disposition: 09/21 07:57 Co-signature as Attending Physician, Frankie Mejía MD I agree with the assessment and liza plan of care. Disposition: 09/20/20 14:11 Discharged to Home. Impression: Abdominal and pelvic pain. - Condition is Stable. - Discharge Instructions: Abdominal Pain, Adult, Pelvic Pain, Female. - Prescriptions for Ultracet 37.5- 325 mg Oral Tablet - take 1 tablet by ORAL route every 6 hours - for up to 5 days; do not exceed 8 tablets per day.; 20 tablet. - Medication Reconciliation Form, Thank You Letter, Antibiotic Education, Prescription Opioid Use form. - Follow up: Tom King MD; When: 2 - 3 days; Reason: Recheck today's complaints, Continuance of care, Re-evaluation by your physician. Signatures: Dispatcher [employer] [facility] Frankie Mejía MD MD cha Mickail, Joel, PA PA jmm Davies, Jonathon, RN RN jd3 Manuela Dennis RN RN vg1 Corrections: (The following items were deleted from the chart) 09/20 12:42 12:39 Pelvis Complete+US.RAD.BRZ ordered. [facility] 14:31 14:11 09/20/2020 14:11 Discharged to Home. Impression: Abdominal and pelvic pain. vg1 Condition is Stable. Forms are Medication Reconciliation Form, Thank You Letter, Antibiotic Education, Prescription Opioid Use. Follow up: Tom King; When: 2 - 3 days; Reason: Recheck today's complaints, Continuance of care, Re-evaluation by your physician. [facility]
[2020-09-20 14:39] VITALS: TEMP 97.3
[2020-09-20 14:42] VITALS: O2SAT 100
[2020-09-20 14:43] VITALS: BP 125/55
== END 2020-09-20 14:31 | disposition home or self-care (01) ==
LOC: ER 09:59
DX: R10.2 Pelvic and perineal pain (principal)
CPT/HCPCS: 85025; 80048; 36415; 80076; 81003; 83690; 74177; 76830; Q9967

== ENCOUNTER 2021-03-09 10:08 | Emergency (ER) | payer BC, OTHER ==
--- OUTSIDE RECORDS SUMMARY | 2021-03-09 10:11 | XMS REPORT | Continuity of Care Document ---
:1980 Author Organization [facility] t Address [address] [place] [address] Care Team Providers Name Role Phone Vito HENDRICKS Attending Clinician Unavailable JULY Attending Clinician Unavailable Vito HENDRICKS Admitting Clinician Unavailable Payers Payer Name Policy Type Policy Number Effective Date Expiration Date S ource BCBS PPO POS EPO [id number] 2019 00:00:00 CHOICE Problems Condition Condition Condition Status Onset Resolution Last Treating Co mments Source Name Details Category Date Date Treatment Clinician Date H. pylori H. pylori Problem Active [facility] [place] [facility] Gastric Gastric Problem Active [facility] nodule nodule [facility] [place] [facility] Iron Iron Problem Active [facility] deficiency deficiency it y of anemia anemia [facility] Vitamin D Vitamin D Problem Active Uni vers deficiency deficiency it y of [facility] ans Allergies, Adverse Reactions, Alerts Allergy Allergy Status Severity Reaction(s) Onset Inactive Treating Comm ents Source Name Type Date Date Clinician NO KNOWN Allergy Active [facility] Medications Ordered Filled Start Stop Current Ordering Indication Dosage Frequency Signature Comments Components Source Medication Medication Date Date Medication? Clinician (SIG) Name Name Integra F Integra F 2018-04 Yes RADAMES Take 1 Univers 125-1 MG 125-1 MG 0-25 BOTELLO N.P. capsule ity of Oral Oral 00:00: for 30 [place] Capsule Capsule 00 days #30 Phys ici Refill 3 ans Vitamin D Vitamin D 2018-04 Yes RADAMES Take 1 Univers (Ergocalcif (Ergocalcif 0-25 BOTELLO N.P. capsule ity of juan) 1.25 juan) 1.25 00:00: two times [place] MG (32335 MG (10288 00 per week P hysici [place]) Oral [place]) Oral ans Capsule Capsule Amoxicill-C Amoxicill-C Yes LEIGH TAKE Univers larithro-[place] larithro-[place] 14 JULY DIRECTED ity of nsopraz nsopraz 00:00: M.D. PER [place] Oral Oral 00 PACKAGE Physici INSTRUCTIO ans NS. Vital Signs Vital Name Observation Time Observation Value Comments Source HEIGHT 2021-01-19 06:23:00 162.6 cm WEIGHT 2021-01-19 06:23:00 100.789 kg HEIGHT 2021-01-13 15:33:00 162.6 cm WEIGHT 2021-01-13 15:33:00 99.791 kg Procedures This patient has no known procedures. Encounters Start End Encounter Admission Attending Care Care Encounter Source Date/Time Date/Time Type Type Clinicians Facility Department ID 2021-01-19 2021-01-19 Outpatient [facility] Surgery [id number] [facility] 05:50:00 11:46:00 JAMESON 2021-01-13 2021-01-13 Outpatient [facility] [id number] 780 [facility] 15:49:26 23:59:00 2019-01-02 2019-01-02 Appointmen AYO MCDOWELL [facility]TP [id number] [facility] 08:30:00 08:30:00 t; LEIGH MCDOWELL M.D. [facility] [place], M.[facility]. [place] [facility] 2018-12-03 2018-12-03 Appointmen AYO MCDOWELL UTP [id number] [facility] 10:30:00 10:30:00 t; LEIGH MCDOWELL M.D. [facility] [place], M.D. [place] [facility] Results Test Description Test Time Test Comments Results Result Comments Source [[facility]] CBC (INCLUDES DIFF/PLT) 2018-12-03 11:21:01 Test Item Value Reference Range Interpretation Comme nts WBC (test code = 6690-2) 6.6 {K/CMM} 3.7-10.4 RBC; Below Low Threshold (test code = 789-8) 3.81 {M/CMM} 4.20-5.40 Hgb; Below Low Threshold (test code = 718-7) 11.9 g/dl 12.0-16.0 Hct; Below Low Threshold (test code = 12971-4) 33.9 % 36.0-48 .0 MCV (test code = 787-2) 88.9 fL 80.0-98.0 MCH; Above High Threshold (test code = 785-6) 31.3 pg 27.0-31. 0 MCHC (test code = 786-4) 35.2 g/dl 32.0-36.0 RDW (test code = 788-0) 13.5 % 11.5-14.5 Platelet (test code = 59727-1) 384 {K/CMM} 133-450 Mean Platelet Volume (test code = 86949-6) 8.0 fL 7.4-10.4 [facility]] [id number] 11:21:01 Test Item Value Reference Range Interpretation Comments Segmented Neutrophils (test code 60.1 % 45.0-75.0 = 47976-4) Monocytes (test code = 26850-9) 5.2 % 2.0-12.0 Lymphocytes (test code = 01417-4) 30.6 % 20.0-40.0 Eosinophils (test code = 02705-5) 3.4 % 0.0-4.0 Basophils (test code = 706-2) 0.7 % 0.0-1.0 Segs-Bands # (test code = 4.0 {K/CMM} 1.5-8.1 72161-3) Lymphocytes # (test code = 2.0 {K/CMM} 1.0-5.5 67081-5) Monocytes # (test code = 99990-3) 0.3 {K/CMM} 0.0-0.8 Eosinophils # (test code = 0.2 {K/CMM} 0.0-0.5 43814-1) [facility]] PTH, INTACT (WITHOUT CALCIUM)2018-12-03 11:21:01 Test Item Value Reference Range Interpretation Comments Parathyroid Hormone Intact (test 75.9 pg/ml 18.4-80.1 code = 2731-8) [facility]] VITAMIN D, 25-HYDROXY, LC/MS/[id number] 11:21:01 Test Item Value Reference Range Interpretation Comments Vitamin D, 25-OH, 21.9 ng/ml 30.0-100.0 Reference range is based Total (test code on recommen dations in the = Vitamin D, EndocrineSociet y Clinical 25-OH, Total) Practice Guide line (J Clin Endocrinol Dibzm5711;96:19 11-1930) [facility]] CMP [id number] 11:21:01 Test Item Value Reference Range Interpretation Comments Sodium Level 141 {mEq/l} 135-145 (test code = 2951-2) Potassium Level 3.8 {mEq/l} 3.5-5.1 (test code = 2823-3) Chloride Level 105 {mEq/l} 95-109 (test code = 5-0) Carbon Dioxide 28 {mEq/l} 24-32 (test code = 2027-9) AGAP (test code = 11.8 {mEq/l} 10.0-20.0 13262-9) Glucose Lvl (test 89 mg/dl 70-99 Adult refe rence range code = 2345-7) values reflec t the clinical guidel inesof the [place] Diabet es Association. Creatinine Lvl 0.60 mg/dl 0.50-1.40 (test code = 2160-0) Blood Urea 11 mg/dl 7-22 Nitrogen (test code = 3094-0) BUN/Creatinine 18 6-25 Ratio (test code = 3097-3) Total Protein 7.5 g/dl 6.4-8.4 (test code = 2885-2) Albumin Lvl (test 3.9 g/dl 3.5-5.0 code = 1751-7) Globulin (test 3.6 g/dl 2.7-4.2 code = 03325-7) A/G Ratio (test 1.1 0.7-1.6 code = 1759-0) Calcium Level 8.7 mg/dl 8.5-10.5 Total (test code = 57871-6) ALT (test code = 15 u/l 0-65 1743-4) AST (test code = 11 u/l 0-37 98617-0) Bili Total (test 0.2 mg/dl 0.2-1.3 code = 1975-2) Alk Phos (test 67 u/l 39-136 The pediatric reference code = 1783-0) ranges for th is test represent a CLSI-basedtrans ference of the CALIPER atilio abase of pediatric refer ence intervals to eSiemens [place] analyzer (Clinical Biochemistry 46 (2013): 6746-0138). [facility] has not internally validated these reference ranges and therefore they should be used only in th e context of a thoroughcl inical assessment. eGFR (test code = 118 The eGFR i s calculated 53801-4) {ML/MIN/1.7} using the CKD-E PI formula. In mos t young, healthyindividu als the eGFR will be >9 0 mL/min/1.73m2. The eGFR declines with a ge. AneGFR of 60-89 may be normal in some population s, particularly th e elderly, forwhom the CKD -EPI formula has not been extensively carlos idated. Use of the eGFR isnot recommended in the following populations:Ind ividuals with unstable c reatinine concentrations, including patient s and those with seri ous co-morbid conditions.Swathi ents with extremes in mus javi mass or diet.The atilio a above are obtained fr om the National Kidney Disease Education Progr am(NKDEP) which zoltana lly recommends that when the eGFR is used in patientswith ex tremes of body mass index for purposes of coretta g dosing, the eGFR should be multiplied by t he estimated BMI. [facility][QL] FOLATE, [id number] 11:21:01 Test Item Value Reference Range Interpretation Comments Folate Level (test code = 2284-8) 17.8 ng/ml >=3.0 [facility]] IRON AND TOTAL IRON BINDING CAPACITY 2018-12-03 11:21:01 Test Item Value Reference Range Interpretation Comments Iron; Below Low Threshold (test 24 ug/dL 30-160 code = 2498-4) % [place]; Below Low Threshold 8 % 12-57 (test code = 2502-3) TIBC (test code = 2500-7) 307 ug/dL 228-428 UIBC (test code = UIBC) 283 ug/dL 110-370 [facility]] LIPID [id number] 11:21:01 Test Item Value Reference Range Interpretation Comments Chol (test code = 2093-3) 180 mg/dl <=199 Trig; Above High Threshold (test 368 mg/dl <=149 code = 2571-8) HDL Cholesterol; Below Low 46 mg/dl >=61 Threshold (test code = 2085-9) CHD Risk (test code = 39435-1) 3.91 3.90-5.80 LDL (test code = 90100-2) 60 mg/dl <=99 VLDL (test code = VLDL) 74 [facility]] VITAMIN [id number] 11:21:01 Test Item Value Reference Range Interpretation Comments Vitamin B12 Level (test code = 354 pg/ml 254-1320 2-9) [facility]] TSH, 3RD GENERATION W/REFLEX TO FT4 2018-12-03 11:21:01 Test Item Value Reference Range Interpretation Comments TSH (test code = 05423-5) 1.880 {uIU/ml} 0.360-3.740 [facility]] HEMOGLOBIN [id number] 11:21:01 Test Item Value Reference Range Interpretation Comments Hemoglobin A1c (test code = 4548-4) 5.3 % <=5.6 [facility][H] Vit [id number] 11:21:01 Test Item Value Reference Range Interpretation Comments Vitamin A 38.4 ug/dL 18.9-57.3 Reference inter vals for vitamin Level (test A determined fr om code = Lab[facility]pinternal studies. Vitamin A Individuals wit h vitamin A less Level) than 20ug/dL ar e considered vitamin A defic ient and those withserum yonatan ntrations less than 10 ug/dL a re consideredsever yasmine deficient.This test was developed and i ts performance characteristics determined by [facility]. It has not been cleared orappro alexander by the Food and Drug Administration. Performed At: [facility] [id number] [place], [place] [id number] ra Melissa PHILLIPS Ph:[phone] [facility][H] Vitamin E [id number] 11:21:01 Test Item Value Reference Range Interpretation Comments Alpha-Tocoph 18.1 mg/L 5.9-19.4 This test was d eveloped and its juan (test performance code = characteristics determined by Alpha[facility]Tocoph [facility]. It has not been cleared juan) orapproved by [facility] Food and Drug Administration. Gamma-Tocoph 1.5 mg/L 0.7-4.9 This test was d eveloped and its juan (test performance code = characteristics determined by Gamma-Tocoph [facility]. It has not been cleared juan) orapproved by [facility] Food and Drug Administration. Reference intervals for a lpha and gamma-tocophero ldetermined from National Health and Nutrition ExaminationSurv ey, 3903-1840. Individuals wit h alpha-tocophero l levelsless than 5.0 mg/L are co nsidered vitamin E deficient.Per formed At: [facility] [id number] [place], [place] [id number] ra Melissa PHILLIPS Ph:[phone] [facility][H] VITAMIN B1, WHOLE [id number] 11:21:01 Test Item Value Reference Range Interpretation Comments Vitamin B1 132.1 66.5-200.0 This test was d eveloped and its Level (test nmol/L performance code = characteristics determined by Vitamin B1 [facility]. It has not been Level) cleared orappro alexander by the Food and Drug Administration. 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 Mclean protocol was utilized. 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
[2021-03-09] MEDS ORDERED: LORazepam 2 MG/ML VIAL ONE (10:40)
[2021-03-09] MEDS ORDERED: ONDANSETRON 4 MG/2 ML VIAL ONE (10:41)
[2021-03-09] MEDS ORDERED: MORPHINE 4 MG/ML SYR ONE (10:41)
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
[2021-03-09 12:33] VITALS: TEMP 98.6; O2SAT 100
[2021-03-09 12:34] VITALS: BP 139/75
--- NOTE | 2021-03-11 12:41 | EKG ---
Test Date: 2021-03-09 Test Time: 10:36:51 Retail Director: SALOMON MEASUREMENT RESULTS: Intervals: Rate: 91 FL: 142 QRSD: 90 QT: 382 QTc: 469 [place]: P: 57 FL: 142 QRS: 39 T: 29 INTERPRETIVE STATEMENTS: Normal sinus rhythm Normal ECG Compared to ECG 06/22/2019 11:38:50 Sinus bradycardia no longer present Electronically Signed On 03-11-21 12:36:06 OBSTETRICS GYN PHYSICIAN by Talib Travis
== END 2021-03-09 12:25 | disposition home or self-care (01) ==
LOC: ER 10:08
PROC: 2W3DX1Z Immobilization of Left Lower Arm using Splint (ICD-10-PCS; principal; 2021-03-09)
DX: S52.92XA Unspecified fracture of left forearm, initial encounter for closed fracture (principal); V49.40XA Driver injured in collision with unspecified motor vehicles in traffic accident, initial encounter
CPT/HCPCS: 93005; 71045; 73110; 99284; 29125; J2405

== ENCOUNTER 2021-12-25 08:10 | Emergency (ER) | payer BC, SELFPAY ==
--- OUTSIDE RECORDS SUMMARY | 2021-12-25 08:17 | XMS REPORT | Continuity of Care Document ---
:1980 Author Organization [facility] t Address [address] [place] [address] Care Team Providers Name Role Phone Chante Kenia Primary Care Physician GUI HAMM Attending Clinician Unavailable Gui Hamm MD Attending Clinician Daryl Jaffe MD Attending Clinician LEIGH MCDOWELL M.D. Attending Clinician Unavailable GUI HAMM Admitting Clinician Unavailable Payers Payer Name Policy Type Policy Number Effective Date Expiration Date S kylie BCBS PPO POS EPO [id number] 2019 00:00:00 CHOICE Problems Condition Condition Condition Status Onset Resolution Last Treating Co mments Source Name Details Category Date Date Treatment Clinician Date H. pylori H. pylori Problem Active [facility] infection infection Phys ici ans Gastric Gastric Problem Active [facility] nodule nodule Physici ans Iron Iron Problem Active [facility] deficiency deficiency Ph ysici anemia anemia ans Vitamin D Vitamin D Problem Active [facility] deficiency deficiency Ph ysici ans Allergies, Adverse Reactions, Alerts Allergy Allergy Status Severity Reaction(s) Onset Inactive Treating Comm ents Source Name Type Date Date Clinician NO KNOWN Allergy Active [facility] Social History Social Habit Start Date Stop Date Quantity Comments Source Alcohol intake 2021-01-20 2021-01-20 Ex-drinker [facility] Tobacco use and 2021-01-13 2021-01-[address] [facility] Sex Assigned At [address] [facility] Smoking Status Start Date Stop Date Source Never smoker [facility] Medications Ordered Filled Start Stop Current Ordering Indication Dosage Frequency Signature Comments Components Source Medication Medication Date Date Medication? Clinician (SIG) Name Name diphenhydrA 2020-04 Yes 25mg Take [address] [facility] 0-15 by [facility] (BENADRYL) 11:46: every Medica l 25 mg 04 night as Center tablet needed for Sleep. Integra F Integra F 2018-04 Yes RADAMES Take 1 UT 125-1 MG 125-1 MG 0-25 BOTELLO N.P. capsule Physici Oral Oral 00:00: for 30 ans Capsule Capsule 00 days #30 Refill 3 Vitamin D Vitamin D 2018-04 Yes RADAMES Take 1 UT (Ergocalcif (Ergocalcif 0-25 BOTELLO N.P. capsule Physici juan) 1.25 juan) 1.25 00:00: two times ans MG (73908 MG (00098 00 per week UT) Oral UT) Oral Capsule Capsule Amoxicill-C Amoxicill-C Yes LEIGH TAKE UT larithro-La larithro-La 4-14 MCDOWELL DIRECTED Physici nsopraz nsopraz 00:00: M.D. PER ans Oral Oral 00 PACKAGE INSTRUCTIO NS. Vital Signs Vital Name Observation Time Observation Value Comments Source HEIGHT 2021-01-19 06:23:00 162.6 cm WEIGHT 2021-01-19 06:23:00 100.789 kg HEIGHT 2021-01-13 15:33:00 162.6 cm WEIGHT 2021-01-13 15:33:00 99.791 kg HEIGHT 2021-01-19 06:23:00 162.6 cm WEIGHT 2021-01-19 06:23:00 100.789 kg HEIGHT 2021-01-13 15:33:00 162.6 cm WEIGHT 2021-01-13 15:33:00 99.791 kg Systolic blood 2021-01-19 10:45:00 114 mm[Hg] [facility] Diastolic blood 2021-01-19 10:45:00 70 mm[Hg] [facility] Respiratory rate 2021-01-19 10:45:00 18 /min [facility] Body temperature 2021-01-19 10:10:00 36.06 Amy [facility] Heart rate 2021-01-19 06:23:00 75 /min [facility] Body height 2021-01-19 06:23:[address] [facility] Body weight 2021-01-19 06:23:[address] [facility] BMI 2021-01-19 06:23:00 38.14 kg/m2 [facility] Oxygen saturation in 2021-01-19 06:23:00 97 /min [facility] Arterial blood by Medical Ce nter Pulse oximetry Procedures Procedure Date / Time Performing Source Performed Clinician REPORT OF PROCEDURE - ENDOSCOPY URL 2021-01-[address] [facility] 09:47:25 [facility] ESOPHAGOGASTRODUODENOSCOPY 2021-01-[address] [facility] 08:46:00 [facility] POCT , URINE 2021-01-[address] [facility] 06:17:00 [facility] Plan of Care Planned Activity Planned Date Details Comments Source Future Scheduled 2021-12-[address] [facility] Test 00:00:00 (#1) [code = [facility] INFLUENZA VACCINE (#1)] Future Scheduled 2021-04-[address] [facility] Test 00:00:00 (12+) [code = [facility] DEPRESSION SCREENING (12+)] Future Scheduled [address] [facility] Test 00:00:00 malignant neoplasm of [facility] cervix (procedure) [code = 583604805] Future Scheduled [address] [facility] Test 00:00:00 (procedure) [code = [facility] 03162336] Future Scheduled 2001 DTAP/TDAP/TD VACCINES [facility] Test 00:00:00 (1 - Tdap) [code = Medical C enter DTAP/TDAP/TD VACCINES (1 - Tdap)] Future Scheduled 2000-01-19 HEPATITIS C SCREENING [facility] Test 00:00:00 [code = HEPATITIS [facility] SCREENING] Future Scheduled 1980 COVID-19 VACCINE (#1) [facility] Test 00:00:00 [code = COVID-[address] VACCINE (#1)] Encounters Start End Encounter Admission Attending Care Care Encounter Source Date/Time Date/Time Type Type Clinicians Facility Department ID 2021-01-19 2021-01-19 Outpatient [facility] Surgery [id number] [facility] 05:50:00 11:46:00 [facility] 2021-01-19 2021-01-19 [facility] [id number] 05:50:00 11:46:00 Encounter [facility] 2021-01-19 2021-01-19 Anesthesia [facility] [id number] 08:51:00 10:05:00 Event [facility] 2021-01-19 2021-01-19 Surgery [facility] [id number] 08:00:00 08:30:00 [facility] 2021-01-13 2021-01-13 Outpatient [facility] [id number] SLE 15:49:26 23:59:00 2021-01-13 2021-01-13 [facility] [id number] 15:30:00 23:59:[address] [facility] 2021-01-13 2021-01-13 Travel [facility] [id number] [facility] 00:00:00 [facility] 2019-01-02 2019-01-02 Appointmen AYO MCDOWELL UTP [id number] UT 08:30:00 08:30:00 tLEIGH THOMAS M.D. Physici BRAD, M.D. [facility] 2018-12-03 2018-12-03 Appointmen AYO MCDOWELL [facility] [id number] [place] 10:30:00 10:30:00 LEIGH Charles M.D. Physici BRAD, M.D. ans Results Test Description Test Time Test Comments Results Result Comments Source POCT , urine 2021-01-19 06:21:00 Test Item Value Reference Range Interpretation Comme nts Test Urine, POC (test code = 3325417) Negative Control line present?, POC (test code = 2999862) Yes Background clear?, POC (test code = 3986226) Yes UPT Cassette Lot #, POC (test code = 3165900) [id number] UPT Cassette Expiration Date, POC (test code = 7056420) 04/07/2022 Lab Interpretation (test code = 19386-6) Normal [facility]] CBC (INCLUDES DIFF/PLT)2018-12-03 11:21:01 Test Item Value Reference Range Interpretation Comments WBC (test code = 6690-2) 6.6 {K/CMM} 3.7-10.4 RBC; Below Low Threshold (test 3.81 {M/CMM} 4.20-5.40 code = 789-8) Hgb; Below Low Threshold (test 11.9 g/dl 12.0-16.0 code = 718-7) Hct; Below Low Threshold (test 33.9 % 36.0-48.0 code = 90063-9) MCV (test code = 787-2) 88.9 fL 80.0-98.0 MCH; Above High Threshold (test 31.3 pg 27.0-31.0 code = 785-6) MCHC (test code = 786-4) 35.2 g/dl 32.0-36.0 RDW (test code = 788-0) 13.5 % 11.5-14.5 Platelet (test code = 30810-0) 384 {K/CMM} 133-450 Mean Platelet Volume (test code 8.0 fL 7.4-10.4 = 57366-4) [facility]] [id number] 11:21:01 Test Item Value Reference Range Interpretation Comments Segmented Neutrophils (test code 60.1 % 45.0-75.0 = 56243-6) Monocytes (test code = 12049-4) 5.2 % 2.0-12.0 Lymphocytes (test code = 79597-8) 30.6 % 20.0-40.0 Eosinophils (test code = 58568-6) 3.4 % 0.0-4.0 Basophils (test code = 706-2) 0.7 % 0.0-1.0 Segs-Bands # (test code = 4.0 {K/CMM} 1.5-8.1 38422-9) Lymphocytes # (test code = 2.0 {K/CMM} 1.0-5.5 64377-5) Monocytes # (test code = 11915-1) 0.3 {K/CMM} 0.0-0.8 Eosinophils # (test code = 0.2 {K/CMM} 0.0-0.5 77866-5) [facility]] PTH, INTACT (WITHOUT CALCIUM)2018-12-03 11:21:01 Test Item Value Reference Range Interpretation Comments Parathyroid Hormone Intact (test 75.9 pg/ml 18.4-80.1 code = 2731-8) [facility]] VITAMIN D, 25-HYDROXY, LC/MS/[id number] 11:21:01 Test Item Value Reference Range Interpretation Comments Vitamin D, 25-OH, 21.9 ng/ml 30.0-100.0 Reference range is based Total (test code on recommen dations in the = Vitamin D, EndocrineSociet y Clinical 25-OH, Total) Practice Guide line (J Clin Endocrinol Bqpzl3744;96:19 11-1930) [facility][QL] CMP [id number] 11:21:01 Test Item Value Reference Range Interpretation Comments Sodium Level 141 {mEq/l} 135-145 (test code = 2951-2) Potassium Level 3.8 {mEq/l} 3.5-5.1 (test code = 2823-3) Chloride Level 105 {mEq/l} 95-109 (test code = 2075-0) Carbon Dioxide 28 {mEq/l} 24-32 (test code = 2027-9) AGAP (test code = 11.8 {mEq/l} 10.0-20.0 42764-7) Glucose Lvl (test 89 mg/dl 70-99 Adult refe rence range code = 2345-7) values reflec t the clinical guidel inesof the [place] Diabet es Association. Creatinine Lvl 0.60 mg/dl 0.50-1.40 (test code = 2160-0) Blood Urea 11 mg/dl 7-22 Nitrogen (test code = 3094-0) BUN/Creatinine 18 6-25 Ratio (test code = 3097-3) Total Protein 7.5 g/dl 6.4-8.4 (test code = 2885-2) Albumin Lvl (test 3.9 g/dl 3.5-5.0 code = 1751-7) Globulin (test 3.6 g/dl 2.7-4.2 code = 60792-4) A/G Ratio (test 1.1 0.7-1.6 code = 1759-0) Calcium Level 8.7 mg/dl 8.5-10.5 Total (test code = 83131-8) ALT (test code = 15 u/l 0-65 1743-4) AST (test code = 11 u/l 0-37 87925-5) Bili Total (test 0.2 mg/dl 0.2-1.3 code = 1975-2) Alk Phos (test 67 u/l 39-136 The pediatric reference code = 1783-0) ranges for th is test represent a CLSI-basedtrans ference of the CALIPER atilio abase of pediatric refer ence intervals to eSiemens Waddington analyzer (Clinical Biochemistry 46 (2013): 7436-5318). [facility] has not internally validated these reference ranges and therefore they should be used only in th e context of a thoroughcl inical assessment. eGFR (test code = 118 The eGFR i s calculated 73241-2) {ML/MIN/1.7} using the CKD-E PI formula. In [...] National Kidney Disease Education Progr am(NKDEP) which orlando loya recommends that when the eGFR is used in patientswith ex tremes of body mass index for purposes of coretta g dosing, the eGFR should be multiplied by t he estimated BMI. [facility][QL] FOLATE, [id number] 11:21:01 Test Item Value Reference Range Interpretation Comments Folate Level (test code = 2284-8) 17.8 ng/ml >=3.0 [facility][QL] IRON AND TOTAL IRON BINDING [id number] 11:21:01 Test Item Value Reference Range Interpretation Comments Iron; Below Low Threshold (test 24 ug/dL 30-160 code = 2498-4) % [place]; Below Low Threshold 8 % 12-57 (test code = 2502-3) TIBC (test code = 2500-7) 307 ug/dL 228-428 UIBC (test code = UIBC) 283 ug/dL 110-370 [facility][QL] LIPID [id number] 11:21:01 Test Item Value Reference Range Interpretation Comments Chol (test code = 2093-3) 180 mg/dl <=199 Trig; Above High Threshold (test 368 mg/dl <=149 code = 2571-8) HDL Cholesterol; Below Low 46 mg/dl >=61 Threshold (test code = 2085-9) CHD Risk (test code = 97641-8) 3.91 3.90-5.80 LDL (test code = 98691-3) 60 mg/dl <=99 VLDL (test code = VLDL) 74 [facility][QLH] VITAMIN [id number] 11:21:01 Test Item Value Reference Range Interpretation Comments Vitamin B12 Level (test code = 354 pg/ml 254-1320 2-9) [facility][QL] TSH, 3RD GENERATION W/REFLEX TO [id number] 11:21:01 Test Item Value Reference Range Interpretation Comments TSH (test code = 27895-0) 1.880 {uIU/ml} 0.360-3.740 [facility][QLH] HEMOGLOBIN [id number] 11:21:01 Test Item Value Reference Range Interpretation Comments Hemoglobin A1c (test code = 4548-4) 5.3 % <=5.6 [facility][H] Vit [id number] 11:21:01 Test Item Value Reference Range Interpretation [...] the Food and Drug Administration. Performed At: [facility] [id number] ra Melissa PHILLIPS Ph:[phone] [facility][H] Vitamin E [id number] 11:21:01 Test Item Value Reference Range Interpretation Comments Alpha-Tocoph 18.1 mg/L 5.9-19.4 This test was d eveloped and its juan (test performance code = characteristics determined by [facility]oc[facility]. It has not been cleared juan) orapproved by [facility] Food and Drug Administration. Gamma-Tocoph 1.5 mg/L 0.7-4.9 This test was d eveloped and its juan (test performance code = characteristics determined by Gamma-Tocoph [facility]. It has not been cleared juan) orapproved by t Food and Drug Administration. Reference intervals for a lpha and gamma-tocophero ldetermined from National Health and Nutrition ExaminationSurv , 5799-5965. Individuals wit h alpha-tocophero l levelsless than 5.0 mg/L are co nsidered vitamin E deficient.Per formed At: [facility] [id number] Torres MD Ph:[phone] [facility][QL] VITAMIN B1, WHOLE [id number] 11:21:01 Test Item Value Reference Range Interpretation Comments Vitamin B1 132.1 66.5-200.0 This test was d eveloped and its Level (test nmol/L performance code = characteristics determined by Vitamin B1 [facility]. It has not been Level) cleared orappro alexander by the Food and Drug Administration. Performed At: [facility] [id number] [facility] Sadie [place] [id number] ra Melissa PHILLIPS Ph:[phone] [facility]- [facility] MAXIFAC W/O [id number] 10:58:00 Name: MASON PANTOJA Garrison : 1980 Age/S: 38 / F [address] Unit #: [id number] Loc: [place] [address] Phys: Wesley Villatoro III, MD Acct: [id number] Dis Date: Status: REG CLI PHONE #: [phone] Exam Date: 05/22/2018 1002 FAX #: Reason: NASAL POLYPS, J33.9 EXAMS: CPT: [id number] CT MAXIFAC W/O CONTRAST 16470 Examination: Sinus CT without contrast Location code: [...] exposure while achieving a diagnostic quality image. [place] protocol was utilized. Discussion: Clinical history is remarkable for nasal polyps. Polypoid protrusions are present within the nasal cavity effacing the air passages adjacent to the middle turbinates completely, partial effacement of the air passages adjacent tothe inferior turbinates, left more than right. This [...] 1 Signed Report (CONTINUED) Name: MASON PANTOJA : 1980 Age/S: 38 /F [address] Unit #: [id number] Loc: [place] [address] Phys: Wesley Villatoro III, MD Acct: [id number] Dis Date: Status: REG CLI PHONE #: [phone] Exam Date: 05/22/2018 1005 FAX #: Reason: NASAL POLYPS, J33.9 EXAMS: CPT: [id number] CT MAXIFAC W/O CONTRAST 20269 (Continued) CC: Kelly Villatoro III, MD Technologist:Yumiko Mack, RT(R)(CT) CTDI: DLP: Trnscb Date/Time: 05/22/2018 (1058) [id number] Orig Print D/T: S: 05/22/2018 (2039) CTDI: DLP: PAGE 2 Signed Report
[2021-12-25] MEDS ORDERED: LIDOCAINE 1% MPF 2 ML AMPULE ONE ×2 (09:07→09:25)
--- NOTE | 2021-12-25 09:30 | EDPHYS ---
Physician Documentation [facility] Name: April Wei Age: 41 yrs Sex: Female : 1980 Arrival Date: 12/25/2021 Time: 08:12 Bed 11 Private MD: ED Physician Delores Abbasi HPI: 12/25 08:40 This 41 yrs old Female presents to ER via Ambulatory with complaints of Finger jh7 Laceration. 08:40 Onset: The symptoms/episode began/occurred acutely. Associated signs and symptoms: The jh7 patient has no apparent associated signs or symptoms. 41-year-old female presents to the ER complaining of a laceration to the left second finger. Patient states that she was washing dishes and cut her finger on a knife. Reports that she had difficulty stopping the bleeding.. Historical: - Allergies: 08:50 No Known Drug Allergies; ph - Immunization history:: Last tetanus immunization: unknown. - Social history:: Smoking status: Patient denies any tobacco usage or history of. ROS: 08:40 Constitutional: Negative for fever, chills, and weight loss, Eyes: Negative for injury, jh7 pain, redness, and discharge, ENT: Negative for injury, pain, and discharge, Neck: Negative for injury, pain, and swelling, Cardiovascular: Negative for chest pain, palpitations, and edema, Respiratory: Negative for shortness of breath, cough, wheezing, and pleuritic chest pain, Abdomen/GI: Negative for abdominal pain, nausea, vomiting, diarrhea, and constipation, Neuro: Negative for headache, weakness, numbness, tingling, and seizure. 08:40 Skin: Positive for laceration(s), Negative for erythema. 08:40 All other systems are negative. Exam: 08:40 Constitutional: This is a well developed, well nourished patient who is awake, alert, jh7 and in no acute distress. Head/Face: Normocephalic, atraumatic. Eyes: Pupils equal round and reactive to light, extra-ocular motions intact. Lids and lashes normal. Conjunctiva and sclera are non-icteric and not injected. Cornea within normal limits. Periorbital areas with no swelling, redness, or edema. Cardiovascular: Regular rate and rhythm with a normal S1 and S2. No gallops, murmurs, or rubs. Normal PMI, no JVD. No pulse deficits. Respiratory: Lungs have equal breath sounds bilaterally, clear to auscultation and percussion. No rales, rhonchi or wheezes noted. No increased work of breathing, no retractions or nasal flaring. MS/ Extremity: Pulses equal, no cyanosis. Neurovascular intact. Full, normal range of motion. Neuro: Awake and alert, GCS 15, oriented to person, place, time, and situation. Motor strength 5/5 in all extremities. Sensory grossly intact. Normal gait. 08:40 Skin: injury, laceration(s), the wound is approximately 1 cm(s), with a depth of 0.25 cm(s), of the left hand. Vital Signs: 08:49 BP 133 / 87; Pulse 78; Resp 18; Temp 97.1; Pulse Ox 98% on R/A; Weight 86.18 kg; Height ph 5 ft. 4 in. (162.56 cm); 08:49 Body Mass Index 32.61 (86.18 kg, 162.56 cm) ph Laceration: 09:35 Wound Repair of 1cm ( 0.4in ) subcutaneous laceration to palmar aspect of distal jh7 phalanx of left index finger. Distal neuro/vascular/tendon intact. Anesthesia: Digital block administered with 3 mls of 1% lidocaine. Wound prep: Moderate cleansing with betadine with hibiclenz by ak. Skin closed with 2 5-0 Prolene using simple sutures and sterile technique. Dressed with bandaid. Patient tolerated well. MDM: 08:22 Patient medically screened. [facility] 09:35 Differential diagnosis: Left index finger laceration. Data reviewed: vital signs, [facility] nurses notes. Data interpreted: Pulse oximetry: is 98 %. Interpretation: normal. Counseling: I had a detailed discussion with the patient and/or guardian regarding: the historical points, exam findings, and any diagnostic results supporting the discharge/admit diagnosis, to return to the emergency department if symptoms worsen or persist or if there are any questions or concerns that arise at home. ED course: Discussed home wound care and the need to follow-up within 7 days for suture removal. The patient will monitor for signs and symptoms of infection at home. The patient understood the plan of care.. 12/25 08:34 Order name: Dressing - Wound; Complete Time: :06 [facility] 12/25 08:34 Order name: Gloves, Sterile; Complete Time: 09: [facility] 12/25 08:34 Order name: Prolene, Sutures; Complete Time: 09: [facility] 12/25 08:34 Order name: Setup Suture Tray; Complete Time: 09: [facility] Administered Medications: 09:00 Drug: Lidocaine (1 %) 5 ml {Note: administered by ERP.} Volume: 5 ml; Route: jl7 Infiltration; 09:51 Follow up: Response: No adverse reaction [facility] 09:05 Drug: Tetanus-Diphtheria Toxoid Adult 0.5 ml {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 Exp: ph 08/12/2023. Lot #: [id number]. } Route: IM; Site: right deltoid; 09:51 Follow up: Response: No adverse reaction [facility] Disposition: 17:08 STAFF ATTESTATION STATEMENT: I was immediately available onsite in the emergency sd2 department for consultation in the care of this patient. I did not see or examine this patient. Delores Abbasi MD. Disposition Summary: 12/25/21 09:29 Discharge Ordered Location: Home [facility] Problem: new [facility] Symptoms: have improved [facility] Condition: Stable [facility] Diagnosis - Laceration without foreign body of left index finger without damage to nail [facility] Followup: [facility] - With: Private Physician - When: 7 - 10 days - Reason: Staple/Suture removal Discharge Instructions: - Discharge Summary Sheet [facility] - Laceration Care, Adult [facility] Forms: - Medication Reconciliation Form [facility] - Thank You Letter [facility] Signatures: Virginia Chandler RN RN Katelyn Lerma RN RN jl7 Katherine Llanes, PILOT CONTROL OPERATOR PILOT CONTROL OPERATOR Delores Fontanez MD MD sd2
--- NOTE | 2021-12-25 09:30 | ER ---
Nurse's Notes [facility] Name: April Wei Age: 41 yrs Sex: Female : 1980 Arrival Date: 12/25/2021 Time: 08:12 Bed 11 Private MD: Diagnosis: Laceration without foreign body of left index finger without damage to nail Presentation: 12/25 08:49 Chief complaint: Patient states: Cut L index finger while washing dishes this morning, ph no active bleeding noted. Coronavirus screen: Vaccine status: Patient reports receiving the 2nd dose of the covid vaccine. Ebola Screen: No symptoms or risks identified at this time. Initial Sepsis Screen: Does the patient meet any 2 criteria? No. Patient's initial sepsis screen is negative. Does the patient have a suspected source of infection? No. Patient's initial sepsis screen is negative. Risk Assessment: Do you want to hurt yourself or someone else? Patient reports no desire to harm self or others. Onset of symptoms was December 25, 2021. 08:49 Method Of Arrival: Ambulatory ph 08:49 Acuity: BARB 4 ph Triage Assessment: 09:33 General: Appears in no apparent distress. Behavior is calm, cooperative. Pain: ph Complains of pain in left hand. Neuro: Level of Consciousness is awake, alert, obeys commands, Oriented to person, place, time, situation. Derm: Skin is fragile, Skin is pink, warm \T\ dry. Musculoskeletal: Circulation, motion, and sensation intact. Range of motion: intact in all extremities. Injury Description: Laceration sustained to palmar aspect of distal phalanx of left index finger. Historical: - Allergies: 08:50 No Known Drug Allergies; ph - Immunization history:: Last tetanus immunization: unknown. - Social history:: Smoking status: Patient denies any tobacco usage or history of. Screenin:34 Abuse screen: Denies threats or abuse. Denies injuries from another. Nutritional ph screening: No deficits noted. Tuberculosis screening: No symptoms or risk factors identified. Fall Risk None identified. Vital Signs: 08:49 BP 133 / 87; Pulse 78; Resp 18; Temp 97.1; Pulse Ox 98% on R/A; Weight 86.18 kg; Height ph 5 ft. 4 in. (162.56 cm); 08:49 Body Mass Index 32.61 (86.18 kg, 162.56 cm) ED Course: 08:12 Patient arrived in ED. 4 08:13 Katherine Llanes FNP [facility] 7 08:13 Delores Abbasi MD is Attending Physician. [facility] 08:50 Triage completed. 08:50 Arm band placed on Patient placed in an exam room. ph 09:33 Virginia Chandler RN is Primary Nurse. 09:34 Patient has correct armband on for positive identification. Bed in low position. Call light in reach. 09:52 Assist provider with laceration repair on left hand and palmar aspect of distal phalanx jl7 of left index finger that was 2.5 cm. or less using sutures. Set up tray. Performed by Katherine ARTHUR Patient tolerated well. Patient did not have IV access during this emergency room visit. 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 Exp: 08/12/2023. Lot #: [id number]. } Route: IM; Site: right deltoid; 09:51 Follow up: Response: No adverse reaction [facility] Medication: 09:34 Vaccine Information Statement (VIS) provided today. Questions and/or concerns ph addressed. VIS edition date: November 2020. Outcome: 09:29 Discharge ordered by . [facility] 09:52 Discharged to home ambulatory. [facility] 09:52 Condition: stable 09:52 Discharge instructions given to patient, Instructed on discharge instructions, follow up and referral plans. Demonstrated understanding of instructions, follow-up care. 09:53 Patient left the ED. [facility] Signatures: Virginia Chandler, TODD BROOKS Alejandra Dennis [facility] Katelyn Lerma RN RN [facility] Katherine Llanes FNP FNP [facility]
[2021-12-26 14:28] VITALS: BP 133/87; TEMP 97.1; O2SAT 98
== END 2021-12-25 09:53 | disposition home or self-care (01) ==
LOC: ER 08:10
PROC: 0JQK0ZZ Repair Left Hand Subcutaneous Tissue and Fascia, Open Approach (ICD-10-PCS; principal; 2021-12-25)
DX: S61.211A Laceration without foreign body of left index finger without damage to nail, initial encounter (principal); Z23 Encounter for immunization
CPT/HCPCS: 90471; 99283

== ENCOUNTER 2022-06-13 18:18 | Emergency (ER) | payer OTHER, SELFPAY ==
--- OUTSIDE RECORDS SUMMARY | 2022-06-13 18:20 | XMS REPORT | Continuity of Care Document ---
:1980 Author Organization [facility] t Address [address] [facility] [address] [place] [id number] Care Team Providers Name Role Phone Vinny Sharifin Primary Care Physician LEIGH MCDOWELL Attending Clinician Unavailable Gui Hamm MD Attending Clinician GUI HAMM Attending Clinician Unavailable Daryl Jaffe MD Attending Clinician LEIGH MCDOWELL M.D. Attending Clinician Unavailable GUI HAMM Admitting Clinician Unavailable Payers Payer Name Policy Type Policy Number Effective Date Expiration Date S ource Problems Condition Condition Condition Status Onset Resolution [...] Date Clinician NO KNOWN Allergy Active [facility] Social History Social Habit Start Date Stop Date Quantity Comments Source Alcohol intake 2021-01-202021-01-20 Ex-drinker [facility] Tobacco use and 2021-01-13 2021-01-[address] [facility] [address] [facility] exposure 00:[facility]00 [facility] Sex Ass[birth year] At [birth year] [facility] 00:[facility] Smoking Status Start Date Stop Date Source Never smoker [facility] Medications Ordered Filled Start Stop Current Ordering Indication Dosage Frequency Signature Comments Components Source Medication Medication Date Date Medication? Clinician (SIG) Name Name diphenhydrA 2020-04 Yes 25mg Take [address] [facility] 0-15 by [facility] (BENADRYL) 11:46: every Medica l 25 mg 04 night as Center tablet needed for Sleep. diphenhydrA 2020-04 Yes 25mg Take 25 mg [...] juan) 1.25 00:00: two times ans MG (72515 MG (11427 00 per week UT) Oral UT) Oral Capsule Capsule Amoxicill-C Amoxicill-C Yes LEIGH TAKE [facility]-[place] larithro-La 4-14 MCDOWELL DIRECTED Physici nsopraz nsopraz 00:00: M.D. PER ans Oral Oral 00 PACKAGE INSTRUCTIO NS. Vital Signs Vital Name Observation Time Observation Value Comments Source HEIGHT 2021-01-19 06:23:00 162.6 cm WEIGHT 2021-01-19 06:23:00 100.789 kg WEIGHT 2021-01-13 15:33:00 99.791 kg HEIGHT 2021-01-13 15:33:00 162.6 cm HEIGHT 2021-01-19 06:23:00 162.6 cm WEIGHT 2021-01-19 06:23:00 100.789 kg WEIGHT 2021-01-13 15:33:00 99.791 kg HEIGHT 2021-01-13 15:33:00 162.6 cm Systolic blood 2021-01-19 10:45:00 114 mm[Hg] [facility] Diastolic blood 2021-01-19 10:45:00 70 mm[Hg] [facility] Respiratory rate 2021-01-19 10:45:00 18 /min [facility] Body temperature 2021-01-19 10:10:00 36.06 Amy [facility] Heart rate 2021-01-19 06:23:00 75 /min [facility] Body height 2021-01-19 06:23:00 162.6 cm [facility] Body weight 2021-01-19 06:23:00 100.789 kg [facility] BMI 2021-01-19 06:23:00 38.14 kg/m2 [facility] Oxygen saturation in 2021-01-19 06:23:00 97 /min [facility] Arterial blood by Medical Ce nter Pulse oximetry Procedures Procedure Date / Time Performing Source Performed Clinician REPORT OF PROCEDURE - ENDOSCOPY URL 2021-01-[address] [facility] 09:47:25 [facility] ESOPHAGOGASTRODUODENOSCOPY 2021-01-[address] [facility] 08:46:00 [facility] POCT , URINE 2021-01-19 Daryl Jaffe [facility] 06:17:00 [facility] Plan of Care Planned Activity Planned Date Details Comments Source Future Scheduled 2022-04-[address] [facility] Test 00:00:00 (12+) [code = [facility] DEPRESSION SCREENING (12+)] Future Scheduled 2022-01-[address] [facility] 00:00[facility]00 [facility] Scre[facility] (12+) [code = Tobacco Cessation Counseling and Screening (12+)] Future Scheduled 2021-12-[address] [facility] Test 00:00:00 (#1) [code = Medical Center INFLUENZA VACCINE (#1)] Future Scheduled 2021-12-[address] [facility] Test 00:00:00 (#1) [code = Medical Center INFLUENZA VACCINE (#1)] Future Scheduled 2021-04-[address] [facility] Test 00:00:00 (12+) [code = Medical Center DEPRESSION SCREENING (12+)] Future Scheduled [address] [facility] Test 00:00:00 malignant neoplasm of Medica l Center cervix (procedure) [code = 357626379] Future Scheduled [address] [facility] Test 00:00:00 malignant neoplasm of Medica l Center cervix (procedure) [code = 205948278] Future Scheduled [address] [facility] Test 00:00:00 (procedure) [code = [facility] [id number]] Future Scheduled [address] [facility] Test 00:00:00 (procedure) [code = [facility] 92159760] Future Scheduled 2001 DTAP/TDAP/TD VACCINES [facility] 00:00:00 (1 - Tdap) [code = Medical C enter DTAP/TDAP/TD VACCINES (1 - Tdap)] Future Scheduled 2001 DTAP/TDAP/TD VACCINES [facility] Test 00:00:00 (1 - Tdap) [code = Medical C enter DTAP/TDAP/TD VACCINES (1 - Tdap)] Future Scheduled 2000-01-19 HEPATITIS C SCREENING [facility] 00:00:00 [code = HEPATITIS C Medical Center SCREENING] Future Scheduled 2000-01-19 HEPATITIS C [facility]CREENING [facility] Test 00:00:00 [code = HEPATITIS C Medical Center SCREENING] Future Scheduled 1980 COVID-19 VACCINE (#1) [facility] Test 00:00:00 [code = COVID-[address] VACCINE (#1)] Future Scheduled 1980 COVID-19 VACCINE (#1) [facility] Test 00:00:00 [code = COVID-[address] VACCINE (#1)] Encounters Start End Encounter Admission Attending Care Care Encounter Source Date/Time Date/Time Type Type Clinicians Facility Department ID 2022-02-13 Outpatient [facility] [id number] [place] 09:37:29 [id number] [facility] 2022-02-21 2022-02-21 Outpatient JULY [facility] [id number] [place] 11:15:00 11:15:00 LEIGH [facility] 2021-01-19 2021-01-19 [facility] Noris [facility] [id number] 05:50:00 11:46:00 Encounter [facility] 2021-01-19 2021-01-19 Outpatient [facility] Surgery [id number] SLE 05:50:00 11:46:00 [facility] 2021-01-19 2021-01-19 Anesthesia [facility] [id number] 08:51:00 10:05:00 Event [facility] 2021-01-19 2021-01-19 [facility] [id number] 08:00:00 08:30:00 [facility] 2021-01-13 2021-01-13 Outpatient [facility] [id number] SLE 15:49:26 23:59:00 2021-01-13 2021-01-13 [facility] [id number] 15:30:00 23:59:00 Encounter [facility] 2021-01-13 2021-01-13 Travel [facility] [id number] [facility] 00:[facility]00 00:00:00 [facility] 2019-01-02 2019-01-02 AYO Cornejo UTP [id number] [place] 08:30:00 08:30:00 t; LEIGH MCDOWELL M.D. Physici BRAD, M.D. ans 2018-12-03 2018-12-03 AYO Cornejo UTP [id number] UT 10:30:00 10:30:00 t; LEIGH MCDOWELL M.D. Physici BRAD, M.D. ans Results Test Description Test Time Test Comments Results Result Comments Source POCT , urine 2021-01-19 06:21:00 Test Item Value Reference Range Interpretation Comme nts Test Urine, POC (test code = 0583719) Negative Control line present?, POC (test code = 2112028) Yes Background clear?, POC (test code = 8260226) Yes UPT Cassette Lot #, POC (test code = 1835976) [id number] UPT Cassette Expiration Date, POC (test code = 1956754) 04/07/2022 Lab Interpretation (test code = 33230-0) Normal [facility]] CBC (INCLUDES DIFF/PLT)2018-12-03 11:21:01 Test Item Value Reference Range Interpretation Comments WBC (test code = 6690-2) 6.6 {K/CMM} 3.7-10.4 RBC; Below Low Threshold (test 3.81 {M/CMM} 4.20-5.40 code = 789-8) Hgb; Below Low Threshold (test 11.9 g/dl 12.0-16.0 code = 718-7) Hct; Below Low Threshold (test 33.9 % 36.0-48.0 code = 80192-8) MCV (test code = 787-2) 88.9 fL 80.0-98.0 MCH; Above High Threshold (test 31.3 pg 27.0-31.0 code = 785-6) MCHC (test code = 786-4) 35.2 g/dl 32.0-36.0 RDW (test code = 788-0) 13.5 % 11.5-14.5 Platelet (test code = 72793-9) 384 {K/CMM} 133-450 Mean Platelet Volume (test code 8.0 fL 7.4-10.4 = 55769-8) [facility]] [id number] 11:21:01 Test Item Value Reference Range Interpretation Comments Segmented Neutrophils (test code 60.1 % 45.0-75.0 = 08226-3) Monocytes (test code = 88601-6) 5.2 % 2.0-12.0 Lymphocytes (test code = 51788-4) 30.6 % 20.0-40.0 Eosinophils (test code = 83881-4) 3.4 % 0.0-4.0 Basophils (test code = 706-2) 0.7 % 0.0-1.0 Segs-Bands # (test code = 4.0 {K/CMM} 1.5-8.1 64662-1) Lymphocytes # (test code = 2.0 {K/CMM} 1.0-5.5 42088-3) Monocytes # (test code = 29891-2) 0.3 {K/CMM} 0.0-0.8 Eosinophils # (test code = 0.2 {K/CMM} 0.0-0.5 65524-5) [facility][QL] PTH, INTACT (WITHOUT CALCIUM)2018-12-03 11:21:01 Test Item Value Reference Range Interpretation Comments Parathyroid Hormone Intact (test 75.9 pg/ml 18.4-80.1 code = 2731-8) [facility]] VITAMIN D, 25-HYDROXY, LC/MS/[id number] 11:21:01 Test Item Value Reference Range Interpretation Comments Vitamin D, 25-OH, 21.9 ng/ml 30.0-100.0 Reference range is based Total (test code on recommen dations in the = Vitamin D, EndocrineSociet y Clinical 25-OH, Total) Practice Guide line (J Clin Endocrinol Rwxdp8399;96:19 11-1930) [facility][QL] CMP [id number] 11:21:01 Test Item Value Reference Range Interpretation Comments Sodium Level 141 {mEq/l} 135-145 (test code = 2951-2) Potassium Level 3.8 {mEq/l} 3.5-5.1 (test code = 2823-3) Chloride Level 105 {mEq/l} 95-109 (test code = 5-0) Carbon Dioxide 28 {mEq/l} 24-32 (test code = 2027-9) AGAP (test code = 11.8 {mEq/l} 10.0-20.0 52584-8) Glucose Lvl (test 89 mg/dl 70-99 Adult refe rence range code = 2345-7) values reflec t the clinical guidel inesof the [place] Diabet es Association. Creatinine Lvl 0.60 mg/dl 0.50-1.40 (test code = 2160-0) Blood Urea 11 mg/dl 7-22 Nitrogen (test code = 3094-0) BUN/Creatinine 18 6-25 Ratio (test code = 3097-3) Total Protein 7.5 g/dl 6.4-8.4 (test code = 2885-2) Albumin Lvl (test 3.9 g/dl 3.5-5.0 code = 1751-7) Globulin (test 3.6 g/dl 2.7-4.2 code = 31902-0) A/G Ratio (test 1.1 0.7-1.6 code = 1759-0) Calcium Level 8.7 mg/dl 8.5-10.5 Total (test code = 42495-6) ALT (test code = 15 u/l 0-65 1743-4) AST (test code = 11 u/l 0-37 02824-3) Bili Total (test 0.2 mg/dl 0.2-1.3 code = 1975-2) Alk Phos (test 67 u/l 39-136 The pediatric reference code = 1783-0) ranges for th is test represent a CLSI-basedtrans ference of the CALIPER atilio abase of pediatric refer ence intervals to eSiemens [place] analyzer (Clinical Biochemistry 46 (2013): 7713-7213). [facility] has not internally validated these reference ranges and therefore they should be used only in th e context of a thoroughcl inical assessment. eGFR (test code = 118 The eGFR i s calculated 19744-2) {ML/MIN/1.7} using the CKD-E PI formula. In [...] National Kidney Disease Education Progr am(NKDEP) which additiona lly recommends that when the eGFR is used in patientswith ex tremes of body mass index for purposes of coretta g dosing, the eGFR should be multiplied by t he estimated BMI. [facility][QL] FOLATE, [id number] 11:21:01 Test Item Value Reference Range Interpretation Comments Folate Level (test code = 2284-8) 17.8 ng/ml >=3.0 [facility][QL] IRON AND TOTAL IRON BINDING [id number] 11:21:01 Test Item Value Reference Range Interpretation Comments Iron; Below Low Threshold (test 24 ug/dL 30-160 code = 2498-4) % Satur Fe; Below Low Threshold 8 % 12-57 (test code = 2502-3) TIBC (test code = 2500-7) 307 ug/dL 228-428 UIBC (test code = UIBC) 283 ug/dL 110-370 [facility][QL] LIPID [id number] 11:21:01 Test Item Value Reference Range Interpretation Comments Chol (test code = 2093-3) 180 mg/dl <=199 Trig; Above High Threshold (test 368 mg/dl <=149 code = 2571-8) HDL Cholesterol; Below Low 46 mg/dl >=61 Threshold (test code = 2085-9) CHD Risk (test code = 87265-9) 3.91 3.90-5.80 LDL (test code = 90870-7) 60 mg/dl <=99 VLDL (test code = VLDL) 74 [facility][QL] VITAMIN [id number] 11:21:01 Test Item Value Reference Range Interpretation Comments Vitamin B12 Level (test code = 354 pg/ml 254-1320 2-9) [facility][QL] TSH, 3RD GENERATION W/REFLEX TO [id number] 11:21:01 Test Item Value Reference Range Interpretation Comments TSH (test code = 57234-1) 1.880 {uIU/ml} 0.360-3.740 [facility][QLH] HEMOGLOBIN [id number] 11:21:01 Test Item Value Reference Range Interpretation Comments Hemoglobin A1c (test code = 4548-4) 5.3 % <=5.6 [facility][] Vit [id number] 11:21:01 Test Item Value Reference Range Interpretation [...] the Food and Drug Administration. Performed At: [facility] [id number] ra Melissa PHILLIPS Ph:[phone] [facility][H] Vitamin E [id number] 11:21:01 Test Item Value Reference Range Interpretation Comments Alpha-Tocoph 18.1 mg/L 5.9-19.4 This test was d eveloped and its juan (test performance code = characteristics determined by Alpha-Tocoph [facility]. It has not been cleared juan) orapproved by [facility] Food and Drug Administration. Gamma-Tocoph 1.5 mg/L 0.7-4.9 This test was d eveloped and its juan (test performance code = characteristics determined by Gamma-Tocoph [facility]. It has not been cleared juan) orapproved by t Food and Drug Administration. Reference intervals for a lpha and gamma-tocophero ldetermined from National Health and Nutrition ExaminationSurv , 5482-0832. Individuals wit h alpha-tocophero l levelsless than 5.0 mg/L are co nsidered vitamin E deficient.Per formed At: [facility] [id number] Torres MD Ph:[phone] [facility][QLH] VITAMIN B1, WHOLE [id number] 11:21:01 Test Item Value Reference Range Interpretation Comments Vitamin B1 132.1 66.5-200.0 This test was d eveloped and its Level (test nmol/L performance code = characteristics determined by Vitamin B1 [facility]. It has not been Level) cleared orappro alexander by the Food and Drug Administration. Performed At: [facility] [id number] Torres MD Ph:[phone] [facility]- CT MAXIFAC W/O [id number] 10:58:00 Name: MASON WEI : 1980 Age/S: 38 / F [address] [place] Unit #: [id number] Loc: [place] [address] Phys: Irving Wesley CALLES MD Acct: [id number] Dis Date: Status: REG CLI PHONE #: [phone] Exam Date: 05/22/2018 1005 FAX #: Reason: NASAL POLYPS, J33.9 EXAMS: CPT: [id number] CT MAXIFAC W/O CONTRAST 88492 Examination: Sinus CT without contrast Location code: S17 Comparison: None Technique: Thin section axial images were obtained through the sinuses followed by coronal and sagittal reformations. All CT scans are performed using radiation dose reduction technique. Technical factors are evaluated and adjusted to insure appropriate moderation of exposure. Automated dose management technology is applied to adjust the radiation dose to minimize exposure while achievinga diagnostic quality image. Conde protocol was utilized. Discussion: Clinical history is [...] ears are unremarkable. There is chronic mucoperiosteal thickeningof the sphenoid sinus bilaterally. Impression: Findings suggest diffuse nasal polyposis, diffuse paranasal sinus disease is present as a result. There is no erosion into the orbits. Electronically Si gned by Stefanie Downs on 05/22/2018 at 1058 Reported and signed by: Brennen Downs M.D. PAGE 1 Signed Report (CONTINUED) Name: MASON WEI : 1980 Age/S: 38 / F [address] [address] [place] Unit #: [id number] Loc: [place] [address] Phys: Wesley Villatoro III, MD Acct: [id number] Dis Date: Status: REG CLI PHONE #: [phone] Exam Date: 05/22/2018 1004 FAX #: Reason:NASAL POLYPS, J33.9 EXAMS: CPT: [id number] CT MAXIFAC W/O CONTRAST 83729 (Continued) CC: Wesley Villatoro III, MD Technologist:Yumiko Mack, RT(R)(CT) CTDI: DLP: Trnscb Date/Time: 05/22/2018 (1058) [email or web address] Orig Print D/T: S: 05/22/2018 (8895) CTDI: DLP: PAGE 2 Signed Report
[2022-06-13] MEDS ORDERED: HYDROCODONE/APAP 5/325 MG TAB ONE (20:24)
--- NOTE | 2022-06-13 21:23 | RAD REPORT ---
EXAM DESCRIPTION: RAD - Knee Left 3 View - 06/13/2022 7:56 pm CLINICAL HISTORY: Smash injury COMPARISON: None. FINDINGS: Three views of the left knee. No fracture, dislocation or periosteal reaction.No joint effusion seen. No joint space narrowing. No soft tissue abnormality. Mild enthesopathy at the quadriceps tendon attachment. Clinical concerns for internal derangement or occult bony injury could be further assessed with MR im aging. IMPRESSION: No acute osseous abnormality of the left knee. Mild quadriceps attachment enthesopathy.
[2022-06-13 21:35] VITALS: BP 112/76; TEMP 98.2; O2SAT 100
--- NOTE | 2022-06-29 15:28 | EDPHYS ---
Physician Documentation [facility] Name: April Wei Age: 42 yrs Sex: Female : 1980 Arrival Date: 06/13/2022 Time: 18:19 Bed IW4 Private MD: ED Physician Jose Solis HPI: 06/13 18:49 This 42 yrs old Female presents to ER via Ambulatory with complaints of Knee snw Pain. 18:49 The patient presents with an abrasion, a contusion, pain, that is acute. The complaints snw affect the left knee. Context: The problem was sustained outdoors, resulted from the patient tripping, struck knee on seat of picnic table. Onset: The symptoms/episode began/occurred acutely, just prior to arrival. Associated signs and symptoms: The patient has no apparent associated signs or symptoms. Severity of symptoms: At their worst the symptoms were moderate, a " 8" out of "10". The patient has not experienced similar symptoms in the past. It is unknown whether or not the patient has recently seen a physician. no LOC. Historical: - Allergies: 18:41 No Known Allergies; ap3 - Home Meds: 18:41 None [Active]; ap3 - PMHx: 18:41 None; ap3 - Immunization history:: Client reports receiving the 2nd dose of the Covid vaccine, Flu vaccine is up to date. - Social history:: Smoking status: Patient denies any tobacco usage or history of. ROS: 18:48 Constitutional: Negative for fever, chills, and weight loss, Eyes: Negative for injury, snw pain, redness, and discharge, ENT: Negative for injury, pain, and discharge, Neck: Negative for injury, pain, and swelling, Cardiovascular: Negative for chest pain, palpitations, and edema, Respiratory: Negative for shortness of breath, cough, wheezing, and pleuritic chest pain, Abdomen/GI: Negative for abdominal pain, nausea, vomiting, diarrhea, and constipation, Back: Negative for injury and pain, : Negative for injury, bleeding, discharge, and swelling, Skin: Negative for injury, rash, and discoloration, Neuro: Negative for headache, weakness, numbness, tingling, and seizure, Psych: Negative for depression, anxiety, suicide ideation, homicidal ideation, and hallucinations. 18:48 MS/extremity: Positive for injury or acute deformity, contusion, pain, of the left knee. Exam: 18:47 Constitutional: This is a well developed, well nourished patient who is awake, alert, snw and in no acute distress. Head/Face: Normocephalic, atraumatic. Eyes: Pupils equal round and reactive to light, extra-ocular motions intact. Lids and lashes normal. Conjunctiva and sclera are non-icteric and not injected. Cornea within normal limits. Periorbital areas with no swelling, redness, or edema. ENT: Nares patent. No nasal discharge, no septal abnormalities noted. Tympanic membranes are normal and external auditory canals are clear. Oropharynx with no redness, swelling, or masses, exudates, or evidence of obstruction, uvula midline. Mucous membranes moist. Neck: Trachea midline, no thyromegaly or masses palpated, and no cervical lymphadenopathy. Supple, full range of motion without nuchal rigidity, or vertebral point tenderness. No Meningismus. Chest/axilla: Normal chest wall appearance and motion. Nontender with no deformity. No lesions are appreciated. Cardiovascular: Regular rate and rhythm with a normal S1 and S2. No gallops, murmurs, or rubs. Normal PMI, no JVD. No pulse deficits. Respiratory: Lungs have equal breath sounds bilaterally, clear to auscultation and percussion. No rales, rhonchi or wheezes noted. No increased work of breathing, no retractions or nasal flaring. Abdomen/GI: Soft, non-tender, with normal bowel sounds. No distension or tympany. No guarding or rebound. No evidence of tenderness throughout. Back: No spinal tenderness. No costovertebral tenderness. Full range of motion. Neuro: Awake and alert, GCS 15, oriented to person, place, time, and situation. Cranial nerves II-XII grossly intact. Motor strength 5/5 in all extremities. Sensory grossly intact. Cerebellar exam normal. Normal gait. Psych: Awake, alert, with orientation to person, place and time. Behavior, mood, and affect are within normal limits. 18:47 Musculoskeletal/extremity: Extremities: grossly normal except: noted in the left knee: abrasion, contusion, tenderness, ROM: no acute changes, Circulation is intact in all extremities. Sensation intact. 8/10 pain DVT Exam: No signs of deep vein thrombosis. Vital Signs: 18:43 BP 112 / 76; Pulse 86; Resp 18; Temp 98.2; Pulse Ox 100% ; Weight 89.36 kg; Pain 8/10; ap3 18:43 Pain Scale: Adult ap3 MDM: 18:59 Patient medically screened. snw 20:11 Differential diagnosis: contusion. Data reviewed: vital signs, nurses notes, radiologic snw studies, plain films. Independent interpretation of the following test(s) in the Emergency Department X-Ray: My interpretation is no acute fracture/dislocation. Counseling: I had a detailed discussion with the patient and/or guardian regarding: the historical points, exam findings, and any diagnostic results supporting the discharge/admit diagnosis, radiology results, the need for outpatient follow up, for definitive care, to return to the emergency department if symptoms worsen or persist or if there are any questions or concerns that arise at home. Special discussion: Based on the history and exam findings, there is no indication for further emergent testing or inpatient evaluation. I discussed with the patient/guardian the need to see the orthopedic surgeon for further evaluation of the symptoms. I discussed with the patient/guardian the need to see the primary care provider for further evaluation of the symptoms. 06/13 19:55 Order name: Knee Left 3 View EDMS 06/13 20:11 Order name: Ben wrap-joint; Complete Time: 20:29 snw Administered Medications: 20:26 Drug: HYDROcodone-acetaminophen PO 5 mg-325 mg 1 tabs Route: PO; bb Disposition: 18:58 Co-signature as Attending Physician, Jose ROONEY was immediately available on-site ms3 in the Emergency Department for consultation in the care of the patient. Disposition Summary: 06/13/22 20:09 Discharge Ordered Location: Home snw Condition: Stable snw Diagnosis - Contusion of left knee snw - Fall on same level from slipping, tripping and stumbling with subsequent striking snw against object Followup: snw - With: Emergency Department - When: As needed - Reason: Worsening of condition Followup: snw - With: Private Physician - When: 2 - 3 days - Reason: Recheck today's complaints, Continuance of care, Re-evaluation by your physician Discharge Instructions: - Discharge Summary Sheet snw - Contusion snw - Fall Prevention in the Home, Adult snw - Acute Knee Pain, Adult snw Forms: - Medication Reconciliation Form snw - Thank You Letter snw - Antibiotic Education snw - Prescription Opioid Use snw Prescriptions: - Mobic 7.5 mg Oral Tablet - take 1 tablet by ORAL route once daily take with food; 20 tablet; Refills: 0, snw Product Selection Permitted Signatures: Dispatcher [employer] EDMS Vidhi Giron, COUNTY COMMISSIONER-C COUNTY COMMISSIONER-Csnw Francine Dawson, RN RN bb Toya Polk RN RN ap3 Jose Solis DO DO ms3 Corrections: (The following items were deleted from the chart) 18:42 18:41 Home Meds: Zyrtec Oral; ap3 ap3 19:55 18:47 Knee Right 3 View+RAD.RAD.BRZ ordered. EDMS EDMS
--- NOTE | 2022-06-29 15:28 | ER ---
Nurse's Notes [facility] Name: April Wei Age: 42 yrs Sex: Female : 1980 Arrival Date: 06/13/2022 Time: 18:19 Bed IW4 Private MD: Diagnosis: Contusion of left knee;Fall on same level from slipping, tripping and stumbling with subsequent striking against object Presentation: 06/13 18:40 Chief complaint: Patient states: she tripped and hit her left knee on the corner of a ap3 wooden picnic table. patient rates pain at a 8/10 on the pain scale at this time. Coronavirus screen: At this time, the client does not indicate any symptoms associated with coronavirus-19. Ebola Screen: No symptoms or risks identified at this time. Initial Sepsis Screen: Does the patient meet any 2 criteria? No. Patient's initial sepsis screen is negative. Does the patient have a suspected source of infection? No. Patient's initial sepsis screen is negative. Risk Assessment: Do you want to hurt yourself or someone else? Patient reports no desire to harm self or others. Onset of symptoms was June 13, 2022. 18:40 Method Of Arrival: Ambulatory ap3 18:43 Acuity: BARB 4 ap3 Triage Assessment: 18:42 General: Appears uncomfortable, Behavior is calm, cooperative, appropriate for age. ap3 Pain: Complains of pain in left knee Pain currently is 8 out of 10 on a pain scale. Pain began suddenly. Neuro: Level of Consciousness is awake, alert, obeys commands, Oriented to person, place, time, situation. Cardiovascular: Patient's skin is warm and dry. Respiratory: Airway is patent Respiratory effort is even, unlabored, Respiratory pattern is regular, symmetrical. Historical: - Allergies: 18:41 No Known Allergies; ap3 - Home Meds: 18:41 None [Active]; ap3 - PMHx: 18:41 None; ap3 - Immunization history:: Client reports receiving the 2nd dose of the Covid vaccine, Flu vaccine is up to date. - Social history:: Smoking status: Patient denies any tobacco usage or history of. Screenin:42 [facility] ED Fall Risk Assessment (Adult) History of falling in the last 3 months, ap3 including since admission Yes- single mechanical fall (1 pt). Abuse screen: Denies threats or abuse. Nutritional screening: No deficits noted. Tuberculosis screening: No symptoms or risk factors identified. Assessment: 20:29 Reassessment: Patient is alert, oriented x 3, equal unlabored respirations, skin bb warm/dry/pink. pt seen by this RN at discharge pt verbalized understanding of and agrees to plan of care discharge instructions given. Vital Signs: 18:43 BP 112 / 76; Pulse 86; Resp 18; Temp 98.2; Pulse Ox 100% ; Weight 89.36 kg; Pain 8/10; ap3 18:43 Pain Scale: Adult ap3 ED Course: 18:19 Patient arrived in ED. am2 18:21 Vidhi Giron FNP-C is PHCP. snw 18:21 Jose Solis DO is Attending Physician. snw 18:21 Frankie Craft PA is PHCP. cp 18:43 Triage completed. ap3 18:43 Arm band placed on right wrist. ap3 19:58 Knee Left 3 View In Process Unspecified. EDMS 20:30 No provider procedures requiring assistance completed. Patient did not have IV access bb during this emergency room visit. Administered Medications: 20:26 Drug: HYDROcodone-acetaminophen PO 5 mg-325 mg 1 tabs Route: PO; bb Medication: 20:30 VIS not applicable for this client. bb Outcome: 20:09 Discharge ordered by . snw 20:30 Discharged to home via wheelchair, with family. bb 20:30 Condition: stable 20:30 Discharge instructions given to patient, Instructed on discharge instructions, follow up and referral plans. no driving heavy equipment, medication usage, Demonstrated understanding of instructions, follow-up care, medications, Prescriptions given X 1. 20:31 Patient left the ED. bb Signatures: Dispatcher [employer] EDMS Vidhi Giron FNP-C FLOOR COVERINGS SALESPERSON-Csnw Francine Dawson RN RN bb Frankie Craft PA PA cp Moreno, Amanda am2 Prokisch, Amanda, RN RN ap3 Corrections: (The following items were deleted from the chart) 18:42 18:41 Home Meds: Zyrtec Oral; ap3 ap3
== END 2022-06-13 20:31 | disposition home or self-care (01) ==
LOC: ER 18:18
DX: S80.02XA Contusion of left knee, initial encounter (principal); W01.10XA Fall on same level from slipping, tripping and stumbling with subsequent striking against unspecified object, initial encounter
CPT/HCPCS: 99283

== ENCOUNTER 2022-06-19 10:32 | Emergency (ER) | payer OTHER ==
--- OUTSIDE RECORDS SUMMARY | 2022-06-19 10:36 | XMS REPORT | Continuity of Care Document ---
:1980 Author Organization [facility] t Address [address] [place] [address] [place] [address] Care Team Providers Name Role Phone Kenia Sharif Primary Care Physician LEIGH MCDOWELL Attending Clinician Unavailable GUI HAMM Attending Clinician Unavailable Gui Hamm MD Attending Clinician Daryl Jaffe MD Attending Clinician LEIGH MCDOWELL M.D. Attending Clinician Unavailable GUI HAMM Admitting Clinician Unavailable Payers Payer Name Policy Type Policy Number Effective Date Expiration Date S ource BCBS PPO POS EPO [id number] 2019 00:00:00 CHOICE Problems Condition Condition Condition [...] Date Clinician NO KNOWN Allergy Active [facility] Social History Social Habit Start Date Stop Date Quantity Comments Source Alcohol intake 2021-01-20 2021-01-20 Ex-drinker [facility] Tobacco use and 2021-01-13 2021-01-[address] [facility] exposure 00[facility]00:00 00:00:00 [facility] Center Sex Assigned At [address] [facility] Smoking Status Start Date Stop Date Source Never smoker [facility] Medications Ordered Filled Start Stop [...] juan) 1.25 00:00: two times ans MG (51475 MG (23627 00 per week UT) Oral UT) Oral Capsule Capsule Amoxicill-C Amoxicill-C Yes LEIGH TAKE [facility] larithro-La larithro-La 4-14 MCDOWELL DIRECTED Physici nsopraz nsopraz 00:00: M.D. PER ans Oral Oral 00 PACKAGE INSTRUCTIO NS. Vital Signs Vital Name Observation Time Observation Value Comments Source WEIGHT 2021-01-19 06:23:00 100.789 kg HEIGHT 2021-01-19 06:23:00 162.6 cm HEIGHT 2021-01-13 15:33:00 162.6 cm WEIGHT 2021-01-13 15:33:00 99.791 kg WEIGHT 2021-01-19 06:23:00 100.789 kg HEIGHT 2021-01-19 06:23:00 162.6 cm HEIGHT 2021-01-13 15:33:00 162.6 cm WEIGHT 2021-01-13 15:33:00 99.791 kg Systolic blood 2021-01-19 10:45:00 114 mm[Hg] [facility] Diastolic blood 2021-01-19 10:45:00 70 mm[Hg] [facility] Respiratory rate 2021-01-19 10:45:00 18 /min [facility] Body temperature 2021-01-19 10:10:00 36.06 Amy [facility] Heart rate 2021-01-19 06:23:00 75 /min [facility] Body height 2021-01-19 06:23:00 162.6 cm [facility] Body weight 2021-01-19 06:23:00 100.789 kg [facility] BMI 2021-01-19 06:23:00 38.14 kg/m2 [facility] Oxygen saturation in 2021-01-19 06:23:00 97 /min [facility] Arterial blood by Medical Ce nter Pulse oximetry Procedures Procedure Date / Time Performing Source Performed Clinician REPORT OF PROCEDURE - ENDOSCOPY URL 2021-01-[address] [facility] 09:47:25 [facility] ESOPHAGOGASTRODUODENOSCOPY 2021-01-[address] [facility] 08:46:00 [facility] POCT , URINE 2021-01-19 Daryl Jaffe [facility] 06:17:00 [facility] Plan of Care Planned Activity Planned Date Details Comments Source Future Scheduled 2022-04-08 DEPRESSION SCREENING [facility] 00:00:00 (12+) [code = [facility] DEPRESSION SCREENING (12+)] Future Scheduled 2022-04-[address] [facility] Test 00:00:00 (12+) [code = Medical Center DEPRESSION SCREENING (12+)] Future Scheduled 2022-01-[address] [facility] Test 00:00:00 [facility] Scre[facility] (12+) [code = Tobacco Cessation Counseling and Screening (12+)] Future Scheduled 2022-01-[address] [facility] Test 00:00:00 [facility] Screening (12+) [code = Tobacco Cessation Counseling and Screening (12+)] Future Scheduled 2021-12-[address] [facility] Test 00:00:00 (#1) [code = [facility] Center INFLUENZA VACCINE (#1)] Future Scheduled 2021-12-[address] [facility] Test 00:00:00 (#1) [code = [facility] Center INFLUENZA VACCINE (#1)] Future Scheduled 2021-12-[address] [facility] Test 00:00:00 (#1) [code = [facility] Center INFLUENZA VACCINE (#1)] Future Scheduled 2021-04-[address] [facility] Test 00:00:00 (12+) [code = [facility] Center DEPRESSION SCREENING (12+)] Future Scheduled [address] [facility] Test 00:00:00 malignant neoplasm of Medica l Center cervix (procedure) [code = 770487560] Future Scheduled [address] [facility] Test 00:00:00 malignant ne[facility] cervix (procedure) [code = 494592630] Future Scheduled [address] [facility] Test 00:00:00 malignant neoplasm of [facility] Center cervix (procedure) [code = 046138346] Future Scheduled [address] [facility] Test 00:00:00 (procedure) [code = [facility] 94848629] Future Scheduled [address] [facility] Test 00:00:00 (procedure) [code = [facility] 01240311] Future Scheduled [address] [facility] Test 00:00:00 (procedure) [code = [facility] 28662220] Future Scheduled 2001 DTAP/TDAP/TD VACCINES CH I [...] Type Clinicians Facility Department ID 2022-02-13 Outpatient [facility] [id number] [place] 09:37:29 [id number] Health 2022-02-21 2022-02-21 Outpatient JULY [facility] [id number] [place] 11:15:00 11:15:00 LEIGH [facility] 2021-01-19 2021-01-19 Outpatient KASEY HAMM [facility] Surgery [id number] [facility] 05:50:00 11:46:00 GUI 2021-01-19 2021-01-[address] [address] [facility] [id number] 05:50:00 11:46:00 Encounter [facility] 2021-01-19 2021-01-[address] [facility] [id number] 08:51:00 10:05:00 Event [facility] 2021-01-19 2021-01-[address] [facility] [id number] 08:00:00 08:30:00 [facility] 2021-01-13 2021-01-13 Outpatient [facility] SLE [id number] SLE 15:49:26 23:59:00 2021-01-13 2021-01-13 [facility] [id number] [facility] [address] 15:30:00 23:59:00 Encounter [facility] 2021-01-13 2021-01-13 Travel [facility] [id number] [facility] St 00:00:00 00:00:00 [facility] 2019-01-02 2019-01-02 AppointAYO Ovalles UTP [id number] [place] 08:30:00 08:30:00 t; LEIGH MCDOWELL M.D. Physici BRAD, M.D. ans 2018-12-03 2018-12-03 Appoint[facility]O Ovalles UTP [id number] [place] 10:30:00 10:30:00 t; LEIGH MCDOWELL M.D. Physici BRAD, M.D. ans Results Test Description Test Time Test Comments Results Result Comments Source POCT , urine 2021-01-19 06:21:00 Test Item Value Reference Range Interpretation Comme nts Test Urine, POC (test code = 9487592) Negative Control line present?, POC (test code = 5709331) Yes Background clear?, POC (test code = 3742721) Yes UPT Cassette Lot #, POC (test code = 0346077) [id number] UPT Cassette Expiration Date, POC (test code = 4786285) 04/07/2022 Lab Interpretation (test code = 61075-6) Normal [facility]] CBC (INCLUDES DIFF/PLT)2018-12-03 11:21:01 Test Item Value Reference Range Interpretation Comments WBC (test code = 6690-2) 6.6 {K/CMM} 3.7-10.4 RBC; Below Low Threshold (test 3.81 {M/CMM} 4.20-5.40 code = 789-8) Hgb; Below Low Threshold (test 11.9 g/dl 12.0-16.0 code = 718-7) Hct; Below Low Threshold (test 33.9 % 36.0-48.0 code = 73578-0) MCV (test code = 787-2) 88.9 fL 80.0-98.0 MCH; Above High Threshold (test 31.3 pg 27.0-31.0 code = 785-6) MCHC (test code = 786-4) 35.2 g/dl 32.0-36.0 RDW (test code = 788-0) 13.5 % 11.5-14.5 Platelet (test code = 54251-2) 384 {K/CMM} 133-450 Mean Platelet Volume (test code 8.0 fL 7.4-10.4 = 82445-3) [facility]] [id number] 11:21:01 Test Item Value Reference Range Interpretation Comments Segmented Neutrophils (test code 60.1 % 45.0-75.0 = 98583-6) Monocytes (test code = 64367-3) 5.2 % 2.0-12.0 Lymphocytes (test code = 38692-7) 30.6 % 20.0-40.0 Eosinophils (test code = 20589-9) 3.4 % 0.0-4.0 Basophils (test code = 706-2) 0.7 % 0.0-1.0 Segs-Bands # (test code = 4.0 {K/CMM} 1.5-8.1 96922-4) Lymphocytes # (test code = 2.0 {K/CMM} 1.0-5.5 32921-2) Monocytes # (test code = 31284-1) 0.3 {K/CMM} 0.0-0.8 Eosinophils # (test code = 0.2 {K/CMM} 0.0-0.5 97790-2) [facility][QL] PTH, INTACT (WITHOUT CALCIUM)2018-12-03 11:21:01 Test Item Value Reference Range Interpretation Comments Parathyroid Hormone Intact (test 75.9 pg/ml 18.4-80.1 code = 2731-8) [facility]] VITAMIN D, 25-HYDROXY, LC/MS/[id number] 11:21:01 Test Item Value Reference Range Interpretation Comments Vitamin D, 25-OH, 21.9 ng/ml 30.0-100.0 Reference range is based Total (test code on recommen dations in the = Vitamin D, EndocrineSociet y Clinical 25-OH, Total) Practice Guide line (J Clin Endocrinol Ykaes1993;96:19 11-1930) [facility][QL] CMP [id number] 11:21:01 Test Item Value Reference Range Interpretation Comments Sodium Level 141 {mEq/l} 135-145 (test code = 2951-2) Potassium Level 3.8 {mEq/l} 3.5-5.1 (test code = 2823-3) Chloride Level 105 {mEq/l} 95-109 (test code = 5-0) Carbon Dioxide 28 {mEq/l} 24-32 (test code = 2027-9) AGAP (test code = 11.8 {mEq/l} 10.0-20.0 28198-3) Glucose Lvl (test 89 mg/dl 70-99 Adult refe rence range code = 2345-7) values reflec t the clinical guidel inesof the [place] Diabet es Association. Creatinine Lvl 0.60 mg/dl 0.50-1.40 (test code = 2160-0) Blood Urea 11 mg/dl 7-22 Nitrogen (test code = 3094-0) BUN/Creatinine 18 6-25 Ratio (test code = 3097-3) Total Protein 7.5 g/dl 6.4-8.4 (test code = 2885-2) Albumin Lvl (test 3.9 g/dl 3.5-5.0 code = 1751-7) Globulin (test 3.6 g/dl 2.7-4.2 code = 19305-9) A/G Ratio (test 1.1 0.7-1.6 code = 1759-0) Calcium Level 8.7 mg/dl 8.5-10.5 Total (test code = 42843-2) ALT (test code = 15 u/l 0-65 1743-4) AST (test code = 11 u/l 0-37 86055-8) Bili Total (test 0.2 mg/dl 0.2-1.3 code = 1975-2) Alk Phos (test 67 u/l 39-136 The pediatric reference code = 1783-0) ranges for th is test represent a CLSI-basedtrans ference of the CALIPER atilio abase of pediatric refer ence intervals to eSiemens Viola analyzer (Clinical Biochemistry 46 (2013): 8290-4430). [facility] has not internally validated these reference ranges and therefore they should be used only in e context of a thoroughcl inical assessment. eGFR (test code = 118 The eGFR i s calculated 45858-1) {ML/MIN/1.7} using the CKD-E PI formula. In [...] be multiplied by t he estimated BMI. [facility][QL] FOLATE, [id number] 11:21:01 Test Item Value Reference Range Interpretation Comments Folate Level (test code = 2284-8) 17.8 ng/ml >=3.0 [facility][QL] IRON AND TOTAL IRON BINDING [id number] 11:21:01 Test Item Value Reference Range Interpretation Comments Iron; Below Low Threshold (test 24 ug/dL 30-160 code = 2498-4) % Satur Fe; Below Low Threshold 8 % 12-57 (test code = 2502-3) TIBC (test code = 2500-7) 307 ug/dL 228-428 UIBC (test code = UIBC) 283 ug/dL 110-370 [facility]] LIPID [id number] 11:21:01 Test Item Value Reference Range Interpretation Comments Chol (test code = 2093-3) 180 mg/dl <=199 Trig; Above High Threshold (test 368 mg/dl <=149 code = 2571-8) HDL Cholesterol; Below Low 46 mg/dl >=61 Threshold (test code = 2085-9) CHD Risk (test code = 64846-1) 3.91 3.90-5.80 LDL (test code = 72825-5) 60 mg/dl <=99 VLDL (test code = VLDL) 74 [facility]] VITAMIN [id number] 11:21:01 Test Item Value Reference Range Interpretation Comments Vitamin B12 Level (test code = 354 pg/ml 254-1320 2131-9) [facility]] TSH, 3RD GENERATION W/REFLEX TO [id number] 11:21:01 Test Item Value Reference Range Interpretation Comments TSH (test code = 50094-6) 1.880 {uIU/ml} 0.360-3.740 [facility]] HEMOGLOBIN [id number] 11:21:01 Test Item Value Reference Range Interpretation Comments Hemoglobin A1c (test code = 4548-4) 5.3 % <=5.6 [facility][] Vit [id number] 11:21:01 Test Item Value Reference Range Interpretation [...] the Food and Drug Administration. Performed At: [facility] [address] [place], [place] [id number] ra Melissa PHILLIPS Ph:[phone] [facility][H] Vitamin E [id number] 11:21:01 Test Item Value Reference Range Interpretation Comments Alpha-Tocoph 18.1 mg/L 5.9-19.4 This test was d eveloped and its juan (test performance code = characteristics determined by [facility]Toc[facility]. It has not been cleared juan) orapproved by [facility] Food and Drug Administration. Gamma-Tocoph 1.5 mg/L 0.7-4.9 This test was d eveloped and its juan (test performance code = characteristics determined by Gamma-Tocoph [facility]. It has not been cleared juan) orapproved by [facility] Food and Drug Administration. Reference intervals for a lpha and gamma-tocophero ldetermined from National Health and Nutrition ExaminationSurv , 0273-6660. Individuals wit h alpha-tocophero l levelsless than 5.0 mg/L are co nsidered vitamin E deficient.Per formed At: [facility] [place], [place] [id number] ra Melissa PHILLIPS Ph:[phone] [facility][QLH] VITAMIN B1, WHOLE [id number] 11:21:01 Test Item Value Reference Range Interpretation Comments Vitamin B1 132.1 66.5-200.0 This test was d eveloped and its Level (test nmol/L performance code = characteristics determined by Vitamin B1 [facility]. It has not been Level) cleared orappro alexander by the Food and Drug Administration. Performed At: [employer] [facility] [address] [place], [place] [id number] Torres MD Ph:[phone] [facility]- CT MAXIFAC W/O [id number] 10:58:00 Name: MASON PANTOJA [place] : 1980 Age/S: 38 / F [address] [address] Unit #: [id number] Loc: [place] [address] Phys: Wesley Villatoro III, MD Acct: [id number] Dis Date: Status: REGCLI PHONE #: [phone] Exam Date: 05/22/2018 1005 FAX #: Reason: NASAL POLYPS, J33.9 EXAMS: CPT:[id number] CT MAXIFAC W/O CONTRAST 96009 Examination: Sinus CT without contrast Location code: [...] exposure while achieving a diagnostic quality image. [place] protocol was utilized. Discussion: Clinical history is [...] in the floor of the right frontal sinus,the right frontal ethmoidal recess is occluded. The left-sided frontal ethmoidal recess is partiallyeffaced. Mastoid air cells and middle ears are unremarkable. There is chronic mucoperiosteal thickening of the sphenoid sinus bilaterally. Impression: Findings suggest diffuse nasal polyposis, diffuse p aranasal sinus disease is present as a result. There is no erosion into the orbits. at 1058 Reported and signed by: Brennen Downs M.D. PAGE 1 Signed Report (CONTINUED) Name: MASON PANTOJA [place] : 1980 Age/S: 38 / [id number] Unit #: [id number] Loc: [place] [address] Phys: Wesley Villatoro III, MD Acct:[id number] Dis Date: Status: REG CLI PHONE #: [phone] Exam Date: 05/22/2018 1005 FAX #: Reason: NASAL POLYPS, J33.9 EXAMS: CPT: [id number] CT MAXIFAC W/O CONTRAST 65679 (Continued) CC: Wesley Villatoro III, MD Technologist:Yumiko Mack, RT(R)(CT) CTDI: DLP: Trnscb Date/Time: 05/22/2018 (1058) [id number] Orig Print D/T: S: 05/22/2018 (1101) CTDI: DLP: PAGE 2 Signed Report
[2022-06-19] MEDS ORDERED: KETOROLAC 30 MG/ML INJ ONE (11:08)
[2022-06-19 11:13] LABS: Absolute Lymphocytes (CBC) 1.8 K/uL (0.7-4.9); Hematocrit 30.3 % (36.0-45.0); Lymphocytes % 25.9 % (15.3-44.8); MPV 7.2 fL (7.6-11.3); RBC Red Blood Cell Count 3.74 M/uL (3.86-4.86)
[2022-06-19 11:26] LABS: Potassium 3.4 mmol/L (3.5-5.1)
[2022-06-19 11:49] LABS: SARS-COV-2 RT PCR NEGATIVE (NEGATIVE)
--- NOTE | 2022-06-19 12:13 | EDPHYS ---
Physician Documentation [facility] Name: April Wei Age: 42 yrs Sex: Female : 1980 Arrival Date: 06/19/2022 Time: 10:36 Bed 20 Private MD: Kenia Sharif ED Physician Justo Callaway Historical: - Allergies: 06/19 10:45 No Known Drug Allergies; hb Vital Signs: 10:42 BP 134 / 88; Pulse 82; Resp 18; Temp 97.3; Pulse Ox 100% on R/A; Weight 89.36 kg; hb Height 5 ft. 4 in. ; Pain 7/10; 10:42 Body Mass Index 33.81 (89.36 kg, 162.56 cm) hb 10:42 Pain Scale: Adult hb MDM: 10:45 Patient medically screened. kb 06/19 10:46 Order name: IV Start; Complete Time: 11:10 kb 06/19 10:46 Order name: Basic Metabolic Panel; Complete Time: 11:27 kb 06/19 10:46 Order name: [place] Screen Profile; Complete Time: 11:27 kb 06/19 10:46 Order name: Chest Single View XRAY kb 06/19 10:46 Order name: COVID-19/FLU A+B; Complete Time: 11:50 kb 06/19 10:46 Order name: CBC with Diff; Complete Time: 12:11 kb Administered Medications: 11:10 Drug: Ketorolac IVP 15 mg Route: IVP; Site: right antecubital; bp Disposition Summary: 06/19/22 12:13 Discharge Ordered Location: Home kb Condition: Stable kb Diagnosis - Infectious mononucleosis, unspecified without complication kb Followup: kb - With: Emergency Department - When: As needed - Reason: Worsening of condition Followup: kb - With: Private Physician - When: 2 - 3 days - Reason: Recheck today's complaints, Continuance of care, Re-evaluation by your physician Discharge Instructions: - Discharge Summary Sheet kb - Infectious Mononucleosis, [id number] kb Forms: - Medication Reconciliation Form kb - Thank You Letter kb - Antibiotic Education kb - Prescription Opioid Use kb Prescriptions: - Zofran 4 mg Oral Tablet - take 1 tablet by ORAL route every 6 hours As needed; 12 tablet; Refills: 0, kb Product Selection Permitted Signatures: Dispatcher [employer] Elodia Roth, LANDFILL GAS TECHNICIAN-C LANDFILL GAS TECHNICIAN-Ckb Salma Wharton, RN RN hb Jermaine Asif, RN RN bp
--- NOTE | 2022-06-19 12:13 | ER ---
Nurse's Notes [facility] Name: April Wei Age: 42 yrs Sex: Female : 1980 Arrival Date: 06/19/2022 Time: 10:36 Bed 20 Private MD: Kenia Sharif Diagnosis: Infectious mononucleosis, unspecified without complication Presentation: 06/19 10:42 Chief complaint: Fever, cough, congestion, and vomiting x 1 week. Coronavirus screen: hb Client presents with at least one sign or symptom that may indicate coronavirus-19. Provider contacted for isolation considerations. Ebola Screen: No symptoms or risks identified at this time. Initial Sepsis Screen: Does the patient meet any 2 criteria? No. Patient's initial sepsis screen is negative. Does the patient have a suspected source of infection? No. Patient's initial sepsis screen is negative. Risk Assessment: Do you want to hurt yourself or someone else? Patient reports no desire to harm self or others. Onset of symptoms was June 13, 2022. 10:42 Method Of Arrival: Ambulatory 10:42 Acuity: BARB 3 hb Triage Assessment: 10:45 General: Appears uncomfortable, Behavior is cooperative, appropriate for age, anxious. bp Pain: Complains of pain in head. EENT: No deficits noted. Neuro: No deficits noted. Cardiovascular: No deficits noted. Respiratory: Reports cough that is. GI: Reports nausea, vomiting. : No signs and/or symptoms were reported regarding the genitourinary system. Derm: No deficits noted. Musculoskeletal: No deficits noted. Historical: - Allergies: 10:45 No Known Drug Allergies; hb Screenin:16 [facility] ED Fall Risk Assessment (Adult) History of falling in the last 3 months, bp including since admission No falls in past 3 months (0 pts). Abuse screen: Denies threats or abuse. Denies injuries from another. Nutritional screening: No deficits noted. Tuberculosis screening: No symptoms or risk factors identified. Assessment: 10:45 General: SEE TRIAGE NOTE. GI: Abdomen is non-distended. bp Vital Signs: 10:42 BP 134 / 88; Pulse 82; Resp 18; Temp 97.3; Pulse Ox 100% on R/A; Weight 89.36 kg; hb Height 5 ft. 4 in. ; Pain 7/10; 10:42 Body Mass Index 33.81 (89.36 kg, 162.56 cm) hb 10:42 Pain Scale: Adult hb ED Course: 10:36 Patient arrived in ED. mr 10:36 Kenia Sharif is Private Physician. mr 10:37 Elodia Mckeon FNP-C [facility] kb 10:37 Justo Callaway MD is Attending Physician. kb 10:45 Triage completed. hb 10:46 Arm band placed on. hb 10:57 Jermaine Asif, RN is Primary Nurse. bp 11:10 Inserted saline lock: 20 gauge in right antecubital area, using aseptic technique. bp Blood collected. 11:16 Patient has correct armband on for positive identification. Bed in low position. Call bp light in reach. Side rails up X2. 11:39 Chest Single View XRAY In Process Unspecified. EDMS Administered Medications: 11:10 Drug: Ketorolac IVP 15 mg Route: IVP; Site: right antecubital; bp Outcome: 12:13 Discharge ordered by . kb Signatures: Dispatcher [employer] EDMS Elodia Mckeon FNP-C FNP-Vashti Newton mr WhartonSalma, RN RN Jermaine Msoes, RN RN bp
--- NOTE | 2022-06-19 12:45 | RAD REPORT ---
EXAM DESCRIPTION: RAD - Chest Single View - 06/19/2022 11:37 am CLINICAL HISTORY: Cough;Congestion Chest pain. COMPARISON: Chest Single View dated 03/09/2021; Chest Single View dated 06/11/2018 FINDINGS: Portable technique limits examination quality. Interstitial markings are mildly prominent. This could indicate a mild viral infection. No focal cons olidation typical of bacterial pneumonia seen. The heart is normal in size. No displaced fractures.
[2022-06-19 19:31] VITALS: BP 134/88; TEMP 97.3; O2SAT 100
== END 2022-06-19 13:28 | disposition home or self-care (01) ==
LOC: ER 10:32
DX: B27.90 Infectious mononucleosis, unspecified without complication (principal); Z20.822 Contact with and (suspected) exposure to COVID-19
CPT/HCPCS: 85025; 80048; 36415; 86308; 0240U; 71045; 96374; 99284

== ENCOUNTER 2024-01-25 03:45 | Emergency (ER) | payer OTHER, SELFPAY ==
[2024-01-25] MEDS ORDERED: IBUPROFEN 400 MG TAB ONE (04:30)
[2024-01-25] MEDS ORDERED: LIDOCAINE 1% 20 ML MDV ONE (04:30)
[2024-01-25] MEDS ORDERED: TDAP (DIPHTH,PERTUSS(ACELL),TET VAC) 0.5 ML VIAL IMVAC ONE (04:31)
[2024-01-25] MEDS ORDERED: DIAZEPAM 5 MG TABLET ONE (04:31)
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
[2024-01-25] MEDS ORDERED: CODEINE 30MG/APAP 300MG TAB ONE (07:21)
[2024-01-25 13:25] VITALS: TEMP 97.5
[2024-01-25 13:30] VITALS: BP 151/73; O2SAT 100
== END 2024-01-25 07:28 | disposition home or self-care (01) ==
LOC: ER 03:45
DX: S01.01XA Laceration without foreign body of scalp, initial encounter (principal)
CPT/HCPCS: 12001; 96372; 99284; J2001

== ENCOUNTER 2024-02-07 08:37 | Emergency (ER) | payer OTHER ==
--- NOTE | 2024-02-07 09:11 | ER ---
Nurse's Notes [facility] Name: April Wei Age: 44 yrs Sex: Female : 1980 Arrival Date: 02/07/2024 Time: 08:37 Bed 11 Private MD: Diagnosis: Encounter for removal of sutures Presentation: 02/06 09:01 Chief complaint: Received sutures to top of head 2 weeks ago, here for removal. hb Coronavirus screen: At this time, the client does not indicate any symptoms associated with coronavirus-19. Ebola Screen: No symptoms or risks identified at this time. Initial Sepsis Screen: Does the patient meet any 2 criteria? No. Patient's initial sepsis screen is negative. Does the patient have a suspected source of infection? No. Patient's initial sepsis screen is negative. Risk Assessment: Do you want to hurt yourself or someone else? Patient reports no desire to harm self or others. Onset of symptoms was January 2024. 09:01 Method Of Arrival: Ambulatory 09:01 Acuity: BARB 4 hb Historical: - Allergies: 09:02 No Known Drug Allergies; hb - PMHx: 09:02 Anxiety; seasonal allergies; hb - PSHx: 09:02 Cholecystectomy; gastric sleeve; tubal ligation; hb Vital Signs: 09:01 BP 119 / 89; Pulse 72; Resp 16; Temp 97.8(TE); Pulse Ox 98% on R/A; Weight 95.25 kg; hb Height 5 ft. 4 in. ; Pain 0/10; 09:01 Body Mass Index 36.05 (95.25 kg, 162.56 cm) hb 09:01 Pain Scale: Adult hb ED Course: 08:40 Patient arrived in ED. mg5 08:59 Nain Medley MD is Attending Physician. ec2 09:02 Triage completed. hb 09:02 Arm band placed on. hb Administered Medications: No medications were administered Outcome: 09:11 Discharge ordered by . ec2 09:41 Patient left the ED. hb Signatures: Salma Wharton, RN RN Yuliya Finney mg5 Nain Medley MD MD ec2
--- NOTE | 2024-02-07 09:11 | EDPHYS ---
Physician Documentation [facility] Name: April Wei Age: 44 yrs Sex: Female : 1980 Arrival Date: 02/07/2024 Time: 08:37 Bed 11 Private MD: ED Physician Nain Medley HPI: 02/06 09:11 This 44 yrs old Female presents to ER via Ambulatory with complaints of Suture ec2 Removal. 09:11 Patient arrives today for evaluation of her sutures. Placed approximately 2 weeks ago. ec2 4 to the top of the head. No issues.. Historical: - Allergies: 09:02 No Known Drug Allergies; hb - PMHx: 09:02 Anxiety; seasonal allergies; hb - PSHx: 09:02 Cholecystectomy; gastric sleeve; tubal ligation; hb ROS: 09:11 Constitutional: as per hpi ec2 Exam: 09:11 Constitutional: GEN: NAD Head: atraumatic Eyes: EOMI Ears: External ears are ec2 normal. CV: regular rate LUNGS: no respiratory distress ABD: non-distended SKIN: no evidence of rashes MSK: 4 sutures to the top of the head that are well-healed without erythema Vital Signs: 09:01 BP 119 / 89; Pulse 72; Resp 16; Temp 97.8(TE); Pulse Ox 98% on R/A; Weight 95.25 kg; hb Height 5 ft. 4 in. ; Pain 0/10; 09:01 Body Mass Index 36.05 (95.25 kg, 162.56 cm) hb 09:01 Pain Scale: Adult hb Procedures: 09:12 Suture/Staple removal: Removed 4 sutures, from scalp, site appears well healed, Patient ec2 tolerated well. MDM: 09:05 Medical Screening Exam initiated ec2 09:12 Data reviewed: vital signs. ED course: Arrives today for suture removal. Examination ec2 with well-healed scar. Removed sutures x 4 without issue. Patient discharged home. Return precautions given. Administered Medications: No medications were administered Disposition Summary: 02/07/24 09:11 Discharge Ordered Notes: Location: Home ec2 Condition: Stable ec2 Diagnosis - Encounter for removal of sutures ec2 Followup: ec2 - With: Private Physician - When: - Reason: Re-evaluation by your physician Discharge Instructions: - Discharge Summary Sheet ec2 - Suture Removal, Care After ec2 Forms: - Medication Reconciliation Form ec2 - Antibiotic Education ec2 - Prescription Opioid Use ec2 - Patient Portal Instructions ec2 - Leadership Thank You Letter ec2 Signatures: Salma Wharton RN RN Nain Fishman MD MD ec2
[2024-02-07 09:45] VITALS: BP 119/89; TEMP 97.8; O2SAT 98
== END 2024-02-07 09:41 | disposition home or self-care (01) ==
LOC: ER 08:37
DX: Z48.02 Encounter for removal of sutures (principal)
CPT/HCPCS: 99281